=== PATIENT | female | born 1935 | race Caucasian/White ===

== ENCOUNTER 2016-10-31 22:44 | Emergency (ER) | payer SELFPAY ==
[~2016-10-31] VITALS: Ht 154.9 cm; Wt 52.5 kg
[~2016-10-31 22:44] MED LIST: ASPI-664 PO; ATOR20TA38 PO; BACL10TA PO; GABA300C16 PO; TYL500 PO
[2016-10-31 22:56] VITALS: Ht 154.9 cm; Wt 52.5 kg
== END 2016-11-01 02:45 | disposition left against medical advice (07) ==
LOC: E/R 22:44
DX: Z53.21 Procedure and treatment not carried out due to patient leaving prior to being seen by health care provider (principal)

== ENCOUNTER 2017-02-21 15:26 | Inpatient (IN) | payer MEDICAID ==
[~2017-02-21] VITALS: Ht 157.5 cm; Wt 54.8 kg
[2017-02-21] MEDS ORDERED: SOD CHLORIDE 0.9% 500 ML IV STA (16:45)
[2017-02-21] MEDS ORDERED: ASPI81TA3 PO (16:48)
[2017-02-21] MEDS ORDERED: LEVE-5 PO (16:49)
[2017-02-21] MEDS ORDERED: LISI2.5T59 PO (16:49)
[2017-02-21] MEDS ORDERED: LEVO25TA53 PO (16:49)
[2017-02-21] MEDS ORDERED: morphine 2 MG INJ IV ONE (17:00)
[2017-02-21] MEDS ORDERED: ONDANSETRON 4 MG INJ IV ONE (17:00)
--- NOTE | 2017-02-21 17:08 | ERA ---
ER Documentation Chief Complaint Date/Time DATE: 02/21/17 TIME: 17:04 Chief Complaint LOWER BACK PAIN AFTER MECHANICAL FALL HPI An twisting operator has been used. This is an 82-year-old female who presents with right hip pain after mechanical fall. The patient states that she was using her walker tripped and fell onto the right side of her hip. She now has hip pain is unable to walk arrange the right lower extremity. At triage it was noted that she has back pain but she denies any back pain. She denies hitting her head or losing consciousness, no neck pain. No prodrome of chest pain or shortness of breath. ROS All systems reviewed and are negative except as per history of present illness. Medications Home Meds Active Scripts Baclofen* (Baclofen*) 10 Mg Tablet, 10 MG PO Q8 Y for MUSCLE SPASMS, #60 TAB Prov:MOSHE LEUNG 11/15/15 Atorvastatin Calcium* (Atorvastatin Calcium*) 20 Mg Tablet, 20 MG PO QHS for 60 Days, TAB Prov:MOSHE LEUNG 11/15/15 Gabapentin* (Gabapentin*) 300 Mg Capsule, 300 MG PO TID for 30 Days, CAP Prov:ABAD PERSAUD MD 11/07/15 Reported Medications Levetiracetam* (Keppra*) 500 Mg Tablet, 500 MG PO BID, TAB 02/21/17 Levothyroxine Sodium* (Levothyroxine Sodium*) 25 Mcg Tablet, 25 MCG PO BEFORE BREAKFAST, #30 TAB 02/21/17 Lisinopril* (Lisinopril*) 2.5 Mg Tablet, 2.5 MG PO DAILY, #30 TAB 02/21/17 Aspirin* (Aspirin* Chew) 81 Mg Tab.chew, 81 MG PO DAILY, TAB.CHEW 02/21/17 Discontinued Reported Medications Acetaminophen* (Tylenol*) 500 Mg Tab, 500 MG PO Q8 Y for MILD PAIN LEVEL 1-3, TAB 11/07/15 Allergies Allergies: Coded Allergies: No Known Allergy (Unverified , 02/21/17) PMhx/Soc History of Surgery: No Anesthesia Reaction: No Hx Neurological Disorder: Yes (seizure) Hx Respiratory Disorders: No Hx Cardiac Disorders: No Hx Psychiatric Problems: No Hx Miscellaneous Medical Probl: Yes Hx Alcohol Use: No Hx Substance Use: No Hx Tobacco Use: No FmHx Family History: No diabetes Physical Exam Vitals Vital Signs Date Time Temp Pulse Resp B/P Pulse Ox O2 Delivery O2 Flow Rate FiO2 02/21/17 17:12 74 19 171/97 97 Room Air 02/21/17 15:33 98.0 71 18 151/80 99 Physical Exam Airway is intact Bilateral breath sounds Strong distal pulses No obvious deficits General: Well developed, well nourished, no acute distress Head: Normocephalic, atraumatic Eyes: Pupils equally reactive, EOM intact ENT: Moist mucous membranes Neck: Supple, no lymphadenopathy, No midline tenderness, deformities, step-offs to the cervical spine, full active and passive range of motion without midline pain. Respiratory: Lungs clear bilaterally, no distress, no chest wall tenderness, no crepitus Cardiovascular: RRR, no murmurs, rubs, or gallops Abdominal: Soft, non-tender, non-distended, no peritoneal signs, pelvis is stable : Deferred MSK: The right lower extremity is held externally rotated and shortened. Significant pain with internal and external rotation, 2+ dorsalis pedis and posterior tibial pulses. Focal tenderness to the right hip. No midline tenderness deformities or step-offs to the thoracolumbar spine. No other bony abnormality's. Neurologic: Alert and oriented, moving all extremities, normal speech, no focal weakness, no cerebellar signs Skin: No ecchymoses or bruising to the chest or abdomen Psych: Normal mood Result Diagram: 02/21/17 1700 02/21/17 1700 Results 24 hrs Laboratory Tests Test 02/21/17 17:00 White Blood Count 13.110^3/ul Red Blood Count 4.0910^6/ul Hemoglobin 10.7g/dl Hematocrit 33.9% Mean Corpuscular Volume 82.9fl Mean Corpuscular Hemoglobin 26.2pg Mean Corpuscular Hemoglobin Concent 31.6g/dl Red Cell Distribution Width 15.6% Platelet Count 49564^3/UL Mean Platelet Volume 9.7fl Neutrophils % 66.5% Lymphocytes % 26.8% Monocytes % 4.0% Eosinophils % 1.9% Basophils % 0.2% Nucleated Red Blood Cells % 0.0/100WBC Neutrophils # 8.710^3/ul Lymphocytes # 3.510^3/ul Monocytes # 0.510^3/ul Eosinophils # 0.310^3/ul Basophils # 0.010^3/ul Nucleated Red Blood Cells # 0.010^3/ul Prothrombin Time 13.1Sec Prothrombin Time Ratio 1.0 INR International Normalized Ratio 0.99 Activated Partial Thromboplast Time 30.0Sec Sodium Level 142mmol/L Potassium Level 3.7mmol/L Chloride Level 105mmol/L Carbon Dioxide Level 24mmol/L Anion Gap 17 Blood Urea Nitrogen 19mg/dl Creatinine 0.67mg/dl Glucose Level 85mg/dl Calcium Level 9.3mg/dl Current Medications Medications (Trade) Dose Ordered Sig/Flor Route PRN Reason Start Time Stop Time Status Last Admin Dose Admin Sodium Chloride (NS) 500 ml @ 500 mls/hr Q1H STAT IV 02/21/17 16:45 02/21/17 17:44 DC 02/21/17 17:02 Morphine Sulfate (morphine) 4 mg ONCE ONCE IV 02/21/17 17:00 02/21/17 17:01 DC 02/21/17 17:05 Ondansetron HCl (Zofran Inj) 4 mg ONCE ONCE IV 02/21/17 17:00 02/21/17 17:01 DC 02/21/17 17:05 Ondansetron HCl (Zofran Inj) 4 mg BRIDGE ORDER PRN IV NAUSEA AND/OR VOMITING 02/21/17 18:00 02/22/17 17:59 Acetaminophen (Tylenol Tab) 650 mg ER BRIDGE PRN PO MILD PAIN/FEVER 02/21/17 18:00 02/22/17 17:59 Procedures/MDM EKG, MONITORS, & DIAGNOSTIC IMAGING: EKG: I reviewed and interpreted a 12-lead EKG. Rhythm: Normal sinus rhythm Ectopy: None Intervals: No abnormalities ST segments: No elevations or depressions T waves: No contiguous inversions Chest x-ray: I reviewed and interpreted a 1 view of the chest Mediastinum: No enlargement Cardiac silhouette: No cardiomegaly Airspace: Clear lung lama bilaterally without evidence of pneumothorax Bones: No evidence of fracture X-ray pelvis: X-ray pelvis: I reviewed and interpreted 1 view of the pelvis, there is subtle evidence of a subcapital fracture of the right femur, no soft tissue deformity or foreign body. X-ray right hip: I reviewed and interpreted multiple views of the x-ray Bones: With appears to be a subcapital fracture of the right femur, no dislocation Soft tissue: No evidence of foreign body CT hip is pending LAB INTERPRETATION: No leukocytosis MEDICAL DECISION MAKING: The patient has clinical signs and symptoms consistent with likely closed right hip fracture. The patient did not hit her head or lose consciousness. This is well described. The patient does not meet high-risk criteria and based on NEXUS cervical spine criteria there is no indication for cervical spine imaging at this time. Preoperative laboratory testing and diagnostic imaging will be initiated. Patient will be given pain control medication. No signs of syncope. ER COURSE: The patient's pain is improved. X-ray imaging confirms suspicion of likely right hip fracture that appears to be subcapital femoral fracture. CT imaging to better delineate fracture. Patient is neurovascular intact. Orthopedic surgery was notified. Patient will be admitted for further management. I kept the patient and/or family informed of laboratory and diagnostic imaging results throughout the emergency room course. DISPOSITION PLAN: Medical surgical admission for management of acute right hip fracture CONSULTATION: Accepting care team and consultations: I discussed the current laboratory data, diagnostic imaging and emergency care provided. Admitting team: Dr. Leung Admitting team indication: Insurance directed Consulting services: Orthopedic surgeon Dr. Hawkins Departure Diagnosis: Primary Impression: Closed subcapital fracture of right femur Qualified Code: S72.011A - Closed subcapital fracture of right femur, initial encounter Condition: Stable ABAD PERSAUD MD Feb 21, 2017 17:08
--- NOTE | 2017-02-21 17:12 | RADRPT ---
PROCEDURE: XR Chest. CLINICAL INDICATION: Trauma. Chest pain. TECHNIQUE: Single frontal view. COMPARISON: 10/20/2016. FINDINGS: The lungs are clear. The heart size is normal. There is no pleural effusion. There is no pneumothorax. IMPRESSION: 1. Normal chest radiograph. RPTAT: QQ .Silvio Sanabria MD, MD Date Time Electronically viewed and signed by .Silvio Sanabria MD, MD on 02/21/2017 17:11 .R/
--- NOTE | 2017-02-21 17:17 | RADRPT ---
PROCEDURE: XR Right Hip. CLINICAL INDICATION: Trauma due to a fall. Right hip pain. TECHNIQUE: Two views. Frontal and lateral. COMPARISON: No prior studies are available for comparison. FINDINGS: There is a possible nondisplaced subcapital fracture of the right hip. There is no other fracture a nd there is no dislocation. The soft tissues are normal. There is diffuse osteopenia. Articular surfaces are intact. There is no lytic or blastic lesion. There is no radiopaque foreign body. IMPRESSION: 1. Possible nondisplaced subcapital fracture of the right hip. Correlation with CT scan advised. 2. Diffuse osteopenia. RPTAT: QQ .Silvio Sanabria MD, Date Time Electronically viewed and signed by .Silvio Sanabria MD, on 02/21/2017 17:17 .R/
[2017-02-21 17:45] LABS: ADD SCAN DIFF NO
[2017-02-21 17:48] LABS: BASOPHILS % 0.2 % (0.0-2.0); EOSINOPHILS # 0.3 10^3/ul (0.0-0.5); EOSINOPHILS % 1.9 % (0.0-7.0); HEMATOCRIT 33.9 % (37.0-47.0); HEMOGLOBIN 10.7 g/dl (12.0-16.0); LYMPHOCYTES # 3.5 10^3/ul (0.8-2.9); LYMPHOCYTES % 26.8 % (15.0-51.0); MEAN CORPUSCULAR HEMOGLOBIN 26.2 pg (29.0-33.0); MEAN CORPUSCULAR HGB CONC 31.6 g/dl (32.0-37.0); MEAN CORPUSCULAR VOLUME 82.9 fl (82.0-101.0); MEAN PLATELET VOLUME 9.7 fl (7.4-10.4); MONOCYTE # 0.5 10^3/ul (0.3-0.9); NEUTROPHIL # 8.7 10^3/ul (1.6-7.5); NEUTROPHILS % 66.5 % (39.0-77.0); PLATELET COUNT 246 10^3/UL (140-415); RED BLOOD COUNT 4.09 10^6/ul (4.20-5.40); RED CELL DISTRIBUTION WIDTH 15.6 % (11.5-14.5); WHITE BLOOD COUNT 13.1 10^3/ul (4.8-10.8)
[2017-02-21 18:00] LABS: INR 0.99; POTASSIUM 3.7 mmol/L (3.5-5.1); PROTIME 13.1 Sec (12.2-14.2)
[2017-02-21] MEDS ORDERED: ONDANSETRON 4 MG INJ IV PRN (18:00)
[2017-02-21] MEDS ORDERED: ACETAMINOPHEN 325 MG TAB PO PRN (18:00)
[2017-02-21 18:02] LABS: CREATININE 0.67 mg/dl (0.44-1.00)
[2017-02-21 18:03] LABS: CALCIUM 9.3 mg/dl (8.4-10.2)
--- NOTE | 2017-02-21 18:14 | RADRPT ---
PROCEDURE: XR Pelvis. CLINICAL INDICATION: Pelvic pain. TECHNIQUE: Single AP view of the pelvis. COMPARISON: No prior studies are available for comparison. FINDINGS: There is a possible nondisplaced subcapital fracture of the right hip. There is no other fracture a nd there is no dislocation. There is no lytic or blastic lesion. There is diffuse osteopenia. Articular surfaces are intact. The sacroiliac joints are grossly unremarkable. There is no radiopaque foreign body. IMPRESSION: 1. Possible nondisplaced subcapital fracture of the right hip. Correlation with CT scan advised. 2. Diffuse osteopenia. 3. Otherwise unremarkable frontal view of the pelvis. RPTAT: QQ .Silvio Sanabria MD, MD Date Time Electronically viewed and signed by .Silvio Sanabria MD, on 02/21/2017 18:14 .R/
--- NOTE | 2017-02-21 20:44 | RADRPT ---
PROCEDURE: CT Pelvis without contrast. CLINICAL INDICATION: Pelvic pain. Trauma. Right hip pain. TECHNIQUE: CT scan of the pelvis without intravenous contrast was performed. Helical axial section s were obtained through the pelvis without intravenous contrast enhancement. Coronal and sagittal r eformatted images were obtained from the axial source images. Images were reviewed on a high-resolut [employer] PACS workstation. Total exam DLP is 149.56 mGy-cm. CTDIvol is 5.43 mGy. One or more of the fol lowing dose reduction techniques were used: Automated exposure control, adjustment of the mA and/or kV according to patient size, use of iterative reconstruction technique. COMPARISON: Plain radiographs of the pelvis and right hip done earlier the same day. FINDINGS: There is no pelvic lymphadenopathy or mass. The bladder and distal ureters are normal. The appendix is well seen and appears normal. The bowel and mesentery are normal. There is no free fluid or free gas. There is an acute mildly angulated and impacted subcapital fracture of the right hip. There is no o ther fracture and there is no dislocation. There are degenerative changes of the lower lumbar spine . IMPRESSION: 1. Acute mildly angulated and impacted subcapital fracture of the right hip. 2. Degenerative changes of the lower lumbar spine. 3. Otherwise unremarkable study. Call report: A call report of the findings was made to Dr. Ledesma on 02/21/2017 at 2040 hours. RPTAT: QQ .Silvio Sanabria MD, Date Time Electronically viewed and signed by .Silvio Sanabria MD, on 02/21/2017 20:43 .R/
[2017-02-21] MEDS ORDERED: LORAZEPAM 2 MG INJ ONE (21:53)
[2017-02-21] MEDS ORDERED: LORAZEPAM 2 MG INJ IV PRN (22:00)
[2017-02-22] MEDS ORDERED: BACLOFEN 10 MG TAB PO PRN (00:30)
[2017-02-22] MEDS ORDERED: ONDANSETRON 4 MG INJ IV PRN (00:30)
[2017-02-22] MEDS ORDERED: KETOROLAC 15 MG INJ IV PRN (00:30)
[2017-02-22 01:16] VITALS: BP 126/61; RESP 17
[2017-02-22 01:30] VITALS: Ht 157.5 cm; Wt 54.8 kg
--- NOTE | 2017-02-22 03:19 | HP ---
DATE OF ADMISSION: 02/21/2017 CHIEF COMPLAINT: Right hip pain status post fall. HISTORY OF PRESENT ILLNESS: The patient is an 82-year-old female with a history of hypertension, dy slipidemia, anemia, old cerebrovascular accident, hypothyroidism, and probable seizure who presented to the emergency department complaining of right hip pain. She had a mechanical fall in the [facility] injuring the right side of her hip. She complained of severe pain. Denied hitting her head. No chest pain, lightheadedness, or palpitation prior to her fall. When she presented to the ER, blood pressure was 151/80, heart rate 71, respiratory rate 18, tempera ture 98, oxygen saturation 99% on room air. Imaging, including a pelvic and hip x-ray as well as pe lvis CT, shows right hip fracture. Her chest x-ray was normal. Dr. Hawkins, the orthopedic surgeon, howell s been notified. REVIEW OF SYSTEMS: A 12-point review was performed and is negative except as mentioned in HPI. PAST MEDICAL HISTORY: As per HPI. SOCIAL HISTORY: Denied a history of tobacco, alcohol, or illicit drug use. ALLERGIES: NO KNOWN DRUG ALLERGIES. HOME MEDICATIONS: 1. Baclofen. 2. Lipitor. 3. Lisinopril. 4. Aspirin. 5. Gabapentin. 6. Keppra. 7. Synthroid. PHYSICAL EXAMINATION: VITAL SIGNS: Blood pressure 146/80, heart rate 74, respiratory rate 20, temperature 98, oxygen satu ration 98% on 2 liters. GENERAL: The patient is lying in bed, sleepy but arousable. She is not fully oriented. HEENT: No obvious head deformity. Pupils are reactive to light. Extraocular muscles intact. CARDIOVASCULAR: Regular rate and rhythm. No extra sounds. LUNGS: Clear with no wheezing or rhonchi. ABDOMEN: Soft, nontender. Positive bowel sounds. EXTREMITIES: There is tenderness in the right hip area. Range of motion of the hip is severely berrios ited because of pain. No pitting edema. LABORATORY DATA: WBC 13.1, hemoglobin 10.7. Otherwise, CBC and BMP within acceptable range. IMPRESSION: 1. Acute right hip fracture, status post mechanical fall. 2. Hypertension. 3. History of dyslipidemia. 4. Anemia, a combination of iron deficiency and chronic disease. 5. History of old cerebrovascular accident. 6. Probably history of seizure. 7. History of hypothyroidism. 8. Urinary tract infection. 9. Leukocytosis secondary to urinary tract infection and also possibly stress-induced reaction. PLAN: The patient is currently awaiting an ortho evaluation. In the meantime, we will continue bartolo n management. Bedrest. We will continue her home medications, but I will hold her aspirin. She wi ll be placed on antibiotics for her urinary tract infection. We will follow up on the culture resul ts. Leukocytosis is most likely secondary to urinary tract infection but also probably stress-induc ed reaction as well from pain from her hip fracture. No sign of sepsis. She will receive IV fluid. We will most likely place cardiology consultation for clearance if the patient is going to have hi p surgery. Further workup and management per clinical course. Dictated By: YARELY THOMPSON/ELSA Conf#: [id number] DID#: [id number]
[2017-02-22 06:21] LABS: ADD SCAN DIFF NO
[2017-02-22 06:47] LABS: POTASSIUM 3.7 mmol/L (3.5-5.1)
[2017-02-22 06:48] LABS: ALBUMIN 3.5 g/dl (3.3-4.9); ALBUMIN/GLOBULIN RATIO 0.94; BASOPHILS % 0.2 % (0.0-2.0); CALCIUM 8.7 mg/dl (8.4-10.2); CREATININE 0.67 mg/dl (0.44-1.00); EOSINOPHILS # 0.3 10^3/ul (0.0-0.5); EOSINOPHILS % 3.6 % (0.0-7.0); HEMATOCRIT 32.5 % (37.0-47.0); HEMOGLOBIN 9.9 g/dl (12.0-16.0); LYMPHOCYTES # 2.4 10^3/ul (0.8-2.9); LYMPHOCYTES % 27.1 % (15.0-51.0); MEAN CORPUSCULAR HEMOGLOBIN 25.5 pg (29.0-33.0); MEAN CORPUSCULAR HGB CONC 30.5 g/dl (32.0-37.0); MEAN CORPUSCULAR VOLUME 83.8 fl (82.0-101.0); MEAN PLATELET VOLUME 9.3 fl (7.4-10.4); MONOCYTE # 0.5 10^3/ul (0.3-0.9); MONOCYTES % 5.1 % (0.0-11.0); NEUTROPHIL # 5.6 10^3/ul (1.6-7.5); NEUTROPHILS % 63.7 % (39.0-77.0); PHOSPHORUS 4.1 mg/dl (2.5-4.9); PLATELET COUNT 237 10^3/UL (140-415); RED BLOOD COUNT 3.88 10^6/ul (4.20-5.40); RED CELL DISTRIBUTION WIDTH 15.9 % (11.5-14.5); TOTAL PROTEIN 7.2 g/dl (6.1-8.1); WHITE BLOOD COUNT 8.8 10^3/ul (4.8-10.8)
[2017-02-22] MEDS: LEVOTHYROXINE 25 MCG TAB PO SCH (06:55)
[2017-02-22 07:17] LABS: THYROID STIMULATING HORMONE 2.75 MIU/L (0.465-4.680)
[2017-02-22 08:50] VITALS: BP 118/59; RESP 16
[2017-02-22] MEDS: LEVETIRACETAM 500 MG TAB PO SCH ×2 (09:30→20:43)
[2017-02-22] MEDS: LISINOPRIL 5 MG TAB PO SCH (09:31)
[2017-02-22] MEDS: GABAPENTIN 300 MG CAP PO SCH ×3 (09:31→20:44)
[2017-02-22] MEDS: DEXTROSE 5%-0.45% NACL 1,000 ML IV SCH ×2 (11:33→22:20)
[2017-02-22] MEDS: CEFTRIAXONE 500 MG in SOD CHLORIDE 0.9% 50 ML IVPB SCH (12:51)
[2017-02-22 19:05] VITALS: BP 135/63; RESP 18
[2017-02-22] MEDS: ATORVASTATIN 20 MG TAB PO SCH (20:43)
[2017-02-22] MEDS: HEPARIN 5,000 UNIT/0.5 ML VIAL SC SCH (20:49)
[2017-02-23 05:27] LABS: ADD SCAN DIFF NO
[2017-02-23 05:35] LABS: BASOPHILS % 0.1 % (0.0-2.0); EOSINOPHILS # 0.3 10^3/ul (0.0-0.5); EOSINOPHILS % 3.6 % (0.0-7.0); HEMATOCRIT 29.7 % (37.0-47.0); HEMOGLOBIN 9.3 g/dl (12.0-16.0); LYMPHOCYTES # 2.6 10^3/ul (0.8-2.9); MEAN CORPUSCULAR HEMOGLOBIN 26.2 pg (29.0-33.0); MEAN CORPUSCULAR HGB CONC 31.3 g/dl (32.0-37.0); MEAN CORPUSCULAR VOLUME 83.7 fl (82.0-101.0); MEAN PLATELET VOLUME 9.1 fl (7.4-10.4); MONOCYTE # 0.5 10^3/ul (0.3-0.9); MONOCYTES % 5.6 % (0.0-11.0); NEUTROPHILS % 59.3 % (39.0-77.0); PLATELET COUNT 234 10^3/UL (140-415); RED BLOOD COUNT 3.55 10^6/ul (4.20-5.40); RED CELL DISTRIBUTION WIDTH 15.7 % (11.5-14.5); WHITE BLOOD COUNT 8.4 10^3/ul (4.8-10.8)
[2017-02-23 06:00] LABS: CHOL/HDL RATIO 2.1 RATIO
[2017-02-23 06:08] LABS: CALCIUM 8.6 mg/dl (8.4-10.2); CREATININE 0.68 mg/dl (0.44-1.00); POTASSIUM 3.8 mmol/L (3.5-5.1)
[2017-02-23] MEDS: PANTOPRAZOLE (EC) 40 MG TAB PO SCH (06:22)
[2017-02-23] MEDS: LEVOTHYROXINE 25 MCG TAB PO SCH (06:22)
--- NOTE | 2017-02-23 07:09 | PN ---
DATE: 02/22/2017 SUBJECTIVE: No acute events overnight. Still waiting to be seen by orthopedic surgery team. OBJECTIVE: VITAL SIGNS: Stable. GENERAL: The patient is lying in bed in no acute distress. HEENT: Pupils equal, round, reactive to light. Extraocular muscles intact. NECK: Supple, no thyromegaly. LUNGS: Clear to auscultation bilaterally. CARDIOVASCULAR: S1, S2 heard. No rubs or gallops. ABDOMEN: Soft, nontender, nondistended. Normal bowel sounds. No rebound or guarding. MUSCULOSKELETAL: Decreased range of motion in the right lower extremity with tenderness in the righ t hip area, otherwise no lower extremity edema on the left side. NEUROLOGIC: No focal deficits. LABORATORY DATA: Comprehensive metabolic panel was normal. CBC is normal. ASSESSMENT AND PLAN: An 82-year-old female with history of hypertension, high cholesterol, anemia, CVA, hypothyroidism, and possible seizure history who has acute right hip fracture, status post mech anical fall. 1. Right hip pain secondary to right hip fracture, status post fall. Again, keep patient n.p.o., I V fluids. Follow up orthopedic surgery recommendations. The patient may benefit from orthopedic hernandez rgical intervention. Follow up their recommendations. Pain control medications as well. 2. Essential hypertension. Blood pressure stable. Continue current medicines. 3. High cholesterol. Continue to monitor for now. 4. History of anemia. A combination of iron deficiency and chronic disease. Hemoglobin is relativ jocelyn stable. Continue to monitor for now. 5. History of seizure. Ativan p.r.n. 6. Old stroke, continue to monitor for now. 7. History of hypothyroidism. Consider checking thyroid panel. 8. Urinary tract infection, antibiotics. Follow up final culture results. 9. Gastrointestinal prophylaxis. Add PPI. 10. Deep venous thrombosis prophylaxis. Heparin subcutaneously. Dictated By: VERO OLSON Conf#: [id number] DID#: [id number]
[2017-02-23 07:44] VITALS: BP 115/5; RESP 20
[2017-02-23 08:44] VITALS: BP 115/58; RESP 20
[2017-02-23] MEDS: GABAPENTIN 300 MG CAP PO SCH ×3 (09:19→20:34)
[2017-02-23] MEDS: LEVETIRACETAM 500 MG TAB PO SCH ×2 (09:19→20:34)
[2017-02-23] MEDS: LISINOPRIL 5 MG TAB PO SCH (09:26)
[2017-02-23] MEDS: HEPARIN 5,000 UNIT/0.5 ML VIAL SC SCH ×2 (09:32→20:40)
[2017-02-23] MEDS: DEXTROSE 5%-0.45% NACL 1,000 ML IV SCH (11:40)
[2017-02-23] MEDS: CEFTRIAXONE 500 MG in SOD CHLORIDE 0.9% 50 ML IVPB SCH (12:01)
--- NOTE | 2017-02-23 14:06 | RADRPT ---
Echocardiogram Report Patient Name: TOSHIA EPSTEIN Gender: Female Date: 1935 Study Date: 23-Feb-2017 Manager [employer]: Rabia Iniguez [facility] Location: [id number] Ref. Physician: AASHISH AUGUSTINE Quality: Good Procedures: Transthoracic echocardiogram with complete 2D, M-Mode, and doppler examination. Indications: Pre-op. 2D/M Mode Doppler Measurement Value Normal Ranges Measurement Value Normal Ranges LVIDd 2D 3.7 3.5 - 5.6 cm AV Peak Jesse 1.4 m/sec LVIDs 2D 2.2 2.1 - 4.1 cm AV Peak PG 7.3 mmHg LVPWd 2D 0.7 0.6 - 1.1 cm LVOT Peak Jesse 1.3 m/sec IVSd 2D 0.8 0.6 - 1.1 cm LVOT Peak PG 7.1 mmHg AoR Diam 2D 2.5 2.0 - 3.7 cm MV E Peak Jesse 0.6 m/sec EDV 2D 57.3 cm3 MV A Peak Jesse 0.8 m/sec ESV 2D 11.2 cm3 MV E/A 0.7 LA Dimen 2D 2.5 2.3 - 4.0 cm MV Decel Time 192 msec MV Decel [place] 3 MV E/A 0.7 TR Peak Jesse 3.2 m/sec TR Peak PG 40.5 mmHg RVSP 44.0 mmHg Findings Left Ventricle: Normal left ventricular systolic function. Normal left ventricular cavity size. Normal left ventricular wall thickness. Ejection fraction is visually estimated at 55 %. Tissue Doppler/Mitral Doppler indices are consistent with impaired relaxation (Stage I diastolic dysfunction). Right Ventricle: Normal right ventricular size. Normal right ventricular systolic function. Left Atrium: The left atrium is normal in size. Right Atrium: The right atrium is normal in size. Mitral Valve: Normal appearance and function of the mitral valve with trace physiologic regurgitation. Aortic Valve: No hemodynamically significant aortic stenosis by doppler. Aortic cusps appear mildly calcified. Trace to mild aortic valve regurgitation. Tricuspid Valve: Normal appearance of the tricuspid valve. Estimated peak PA systolic pressure 50 mmHg. There is trace tricuspid regurgitation. Pulmonic Valve: Pulmonic valve not well visualized. Pericardium: Normal pericardium with no significant pericardial effusion. Aorta: Normal aortic root. IVC: Dilated IVC with respiratory collapse consistent with elevated right atrial pressure. Conclusions 1.Normal left ventricular systolic function. Normal left ventricular cavity size. Normal left ventricular wall thickness. Ejection fraction is visually estimated at 55 %. Tissue Doppler/Mitral Doppler indices are consistent with impaired relaxation (Stage I diastolic dysfunction). 2.Normal appearance and function of the mitral valve with trace physiologic regurgitation. 3.No hemodynamically significant aortic stenosis by doppler. Aortic cusps appear mildly calcified. Trace to mild aortic valve regurgitation. 4.Normal appearance of the tricuspid valve. Estimated peak PA systolic pressure 50 mmHg. There is trace tricuspid regurgitation. 5.Dilated IVC with respiratory collapse consistent with elevated right atrial pressure. Electronically Signed By: Jose Hull 23-Feb-2017 14:05:37 -0700 Patient Name: TOSHIA EPSTEIN Study Date: 23-Feb-2017 [id number]
--- NOTE | 2017-02-23 16:16 | CONS ---
DATE OF ADMISSION: 02/21/2017 DATE OF CONSULTATION: 02/23/2017 TYPE OF CONSULTATION: Cardiology. REFERRING PHYSICIAN: Dr. Bahena. REASON FOR CONSULTATION: Cardiovascular preop evaluation. CHIEF COMPLAINT: Status post fall with right hip pain. HISTORY OF PRESENT ILLNESS: Thank you for this referral. History obtained from the patient, review of the chart, and review of the old chart, discussion with the staff and physicians. This is an un fortunate 82-year-old female with history of cerebrovascular accident, hypertension, dyslipidemia, a nemia, and possibly seizure disorder who came to emergency room with above complaint. The patient s aid she had a mechanical fall. She fell on the right hip. She apparently has a hip fracture and is being evaluated for possible hip surgery. We were kindly asked to optimize from the cardiac standp oint. The patient denies any chest pain or pressure to me. Does not walk much due to her stroke. Denies any palpitation to me. Denies any history of cardiac disorder except for her stroke. PAST MEDICAL HISTORY: History of cerebrovascular accident, hypertension, dyslipidemia, anemia, poss ibly seizure. MEDICATIONS: As per medical reconciliation and includes: 1. Baclofen. 2. Lisinopril 3. Lipitor. 4. Aspirin. 5. Gabapentin. 6. Keppra. 7. Synthroid. SOCIAL HISTORY: Does not smoke or drink. FAMILY HISTORY: Denies any history of coronary artery disease. REVIEW OF SYSTEMS: All are negative except for above-mentioned. PHYSICAL EXAMINATION: VITAL SIGNS: Temperature 97.4, heart rate of 62, blood pressure of 115/58, respiration rate of 20, saturating 98%. HEENT: Normocephalic, atraumatic. No acute distress. Pupils are equal and round. CARDIOVASCULAR: Regular rate and rhythm, systolic murmur. PULMONARY: With no wheezes, no rhonchi. GASTROINTESTINAL: Soft, nontender. EXTREMITIES: No significant lower extremity edema. NEUROLOGIC: Awake, responds appropriately. PSYCHIATRIC: Appears to be calm and pleasant. There is right-sided weakness. LABORATORY: WBC of 8.4, hemoglobin 9.3, platelets 234. Sodium 136, potassium 3.8, BUN of 12, creat inine 0.68, glucose 101. Cholesterol 102, LDL 37, HDL 47. TSH 2.75. Chest x-ray shows normal chest x-ray per radiology report. Pelvic CT shows acute, mildly angulated and impacted subcapital fracture of the right hip. EKG was personally reviewed, which showed normal sinus rhythm with nonspecific ST-T wave abnormaliti es. Echocardiogram was also personally reviewed which showed ejection fraction of about 55%. Trace MR. Trace to mild aortic insufficiency. PA pressure was elevated at 50 mmHg. IVC appeared to be dilated. ASSESSMENT AND PLAN: 1. Cardiovascular preop evaluation. 2. Hip fracture. 3. History of cerebrovascular accident. 4. History of hypertension, under good control. 5. Pulmonary hypertension. 6. History of anemia. 7. History of thyroid disorder, on Synthroid. 8. Possible urinary tract infection with Gram-negative rods in the urine. RECOMMENDATIONS: We will continue with the current cardiac care. Blood pressure is currently under good control. Lisinopril will be continued. Thyroid supplement will be continued. Statin will be continued as well. The patient is currently optimized from the cardiac standpoint with no symptoms of heart failure or coronary artery disease. No further cardiac workup would be indicated prior to the surgery. The patient has multiple risk factors including risk of stroke. The patient most rec ently had a history of stroke which will place her at moderate risk of cardiovascular event, but no further cardiac workup would be indicated or necessary or beneficial at this point. We will continue to follow along with you. Thank you for this referral. Dictated By: GABRIEL PAL/ELSA Conf#: [id number] DID#: [id number] CC: VERO BAHENA;*EndCC*
--- NOTE | 2017-02-23 18:47 | PN ---
DATE: 02/23/2017 SUBJECTIVE: Chart reviewed. The patient's pain is well controlled on current medications. PHYSICAL EXAMINATION: VITAL SIGNS: Blood pressure 115/58, pulse 62, respirations 20, temperature 97.4. She is saturating 98% on room air. HEENT: Pupils are equal and reactive to light. NECK: Supple, no JVD noted, no cervical adenopathy, no carotid bruits heard. LUNGS: Fair breath sounds bilaterally. CARDIOVASCULAR: S1, S2 normal. ABDOMEN: Soft, nontender. No organomegaly or masses noted. EXTREMITIES: No clubbing, cyanosis, or edema. NEUROLOGICAL: Awake and alert. LABORATORY DATA: WBC 8.4, hemoglobin 9.3, hematocrit 29.7, platelets 234. Sodium 136, potassium 3. 8, chloride 107, CO2 27, BUN 12, creatinine 0.68, glucose 101. PT, PTT is normal. IMPRESSION: 1. Right hip fracture. 2. History of essential hypertension, well controlled. 3. History of hypercholesterolemia. 4. History of anemia. 5. History of seizure disorder. 6. History of cerebrovascular accident. 7. History of hypothyroidism. 8. Urinary tract infection. RECOMMENDATIONS: There is a bit of mixup between who the orthopedic surgeon is supposed to take care of this patient. Will call ____ for orthopedic consultation for possible surgery tomorrow. From a medical perspective, patient is stable to undergo orthopedic surgery. Dictated By: LISA RANDALL MD, MA/ELSA Conf#: [id number] DID#: [id number]
[2017-02-23 19:41] VITALS: BP 126/60; RESP 18
[2017-02-23] MEDS: ATORVASTATIN 20 MG TAB PO SCH (20:34)
[2017-02-24] MEDS: DEXTROSE 5%-0.45% NACL 1,000 ML IV SCH (01:00)
[2017-02-24 05:39] LABS: ADD SCAN DIFF NO
[2017-02-24 05:56] LABS: BASOPHILS % 0.3 % (0.0-2.0); EOSINOPHILS # 0.4 10^3/ul (0.0-0.5); EOSINOPHILS % 3.7 % (0.0-7.0); HEMOGLOBIN 9.9 g/dl (12.0-16.0); LYMPHOCYTES # 3.2 10^3/ul (0.8-2.9); LYMPHOCYTES % 34.2 % (15.0-51.0); MEAN CORPUSCULAR HEMOGLOBIN 26.1 pg (29.0-33.0); MEAN CORPUSCULAR HGB CONC 30.9 g/dl (32.0-37.0); MEAN CORPUSCULAR VOLUME 84.2 fl (82.0-101.0); MEAN PLATELET VOLUME 9.5 fl (7.4-10.4); MONOCYTE # 0.5 10^3/ul (0.3-0.9); MONOCYTES % 5.6 % (0.0-11.0); NEUTROPHIL # 5.3 10^3/ul (1.6-7.5); NEUTROPHILS % 55.9 % (39.0-77.0); PLATELET COUNT 236 10^3/UL (140-415); RED CELL DISTRIBUTION WIDTH 15.9 % (11.5-14.5); WHITE BLOOD COUNT 9.5 10^3/ul (4.8-10.8)
[2017-02-24 06:04] LABS: POTASSIUM 3.7 mmol/L (3.5-5.1)
[2017-02-24 06:06] LABS: CREATININE 0.77 mg/dl (0.44-1.00)
[2017-02-24 06:07] LABS: CALCIUM 8.9 mg/dl (8.4-10.2)
[2017-02-24] MEDS: PANTOPRAZOLE (EC) 40 MG TAB PO SCH (06:08)
[2017-02-24] MEDS: LEVOTHYROXINE 25 MCG TAB PO SCH (06:08)
[2017-02-24 07:35] VITALS: BP 95/54; RESP 18
[2017-02-24] MEDS: LISINOPRIL 5 MG TAB PO SCH (08:39)
[2017-02-24] MEDS: GABAPENTIN 300 MG CAP PO SCH ×3 (08:42→20:41)
[2017-02-24] MEDS: LEVETIRACETAM 500 MG TAB PO SCH ×2 (08:43→20:41)
[2017-02-24] MEDS: HEPARIN 5,000 UNIT/0.5 ML VIAL SC SCH ×2 (08:53→20:42)
[2017-02-24] MEDS: CEFTRIAXONE 500 MG in SOD CHLORIDE 0.9% 50 ML IVPB SCH (12:06)
--- NOTE | 2017-02-24 13:40 | PN ---
Date/Time of Note Date/Time of Note DATE: 02/24/17 TIME: 13:29 Assessment/Plan VTE Prophylaxis VTE Prophylaxis Intervention: heparin Lines/Catheters IV Catheter Type (from Nrs): Saline Lock Urinary Cath still in place: No Assessment/Plan Assessment/Plan 1. Right subcapital femoral neck fracture, needs hip repalcement, follow up with ortho 2. Hypertension, hold lisinopril for hypotension 3. Dyslipidemia. on lipitor 4. Anemia, a combination of iron deficiency and chronic disease. 5. History of old cerebrovascular accident. 6. Probably history of seizure. on keppra 7. Hypothyroidism. on synthroid 8. Urinary tract infection. on rocephin 9. DVT prophylaxis: heparin Subjective 24 Hr Interval Summary Free Text/Dictation right hip pain Exam/Review of Systems Vital Signs Vitals Vital Signs Date Time Temp Pulse Resp B/P Pulse Ox O2 Delivery O2 Flow Rate FiO2 02/24/17 07:35 98.5 65 18 95/54 99 02/21/17 22:13 Nasal Cannula 2.0 Intake and Output 02/23/17 02/23/17 02/24/17 15:00 23:00 07:00 Intake Total 50 ml 1680 ml 400 ml Balance 50 ml 1680 ml 400 ml Exam Constitutional: alert, oriented, well developed Psych: nl mood/affect, no complaints Head: atraumatic, normocephalic Eyes: EOMI, PERRL, nl conjunctiva, nl lids ENMT: nl external ears & nose, nl lips & teeth, nl nasal mucosa & septum Neck: non-tender, supple Respiratory: clear to auscultation, normal air movement, No congested cough, No crackles/rales, No diminished breath sounds, No intercostal retraction, No labored breathing, No other, No respirations, No tactile fremitus, No wheezing Cardiovascular: nl pulses, regular rate and rhythm, No S3, No S4, No bruits, No diastolic murmur, No edema, No gallop, No irregular rhythm, No jugular venous distention (JVD), No murmurs/extra sounds, No other, No rub, No systolic murmur Gastrointestinal: nl liver, spleen, non-tender, soft, No ascites, No bowel sounds, No distended, No firm, No hepatomegaly, No mass , No other, No rebound or guarding, No splenomegaly, No surgical scars, No tender Musculoskeletal: nl extremities to inspection Extremities: normal pulses, tenderness (right hip pain), No calf tenderness, No clubbing, No cyanosis, No edema, No other, No palpable cord, No pitting pedal edema Neurological: RAVELER II-XII intact, nl mental status, nl speech, nl strength Skin: nl turgor Lymph: nl lymph nodes Results Result Diagram: 02/24/17 0425 02/24/17 0425 Results 24 hrs Laboratory Tests Test 02/24/17 04:25 White Blood Count 9.5 Red Blood Count 3.80 L Hemoglobin 9.9 L Hematocrit 32.0 L Mean Corpuscular Volume 84.2 Mean Corpuscular Hemoglobin 26.1 L Mean Corpuscular Hemoglobin Concent 30.9 L Red Cell Distribution Width 15.9 H Platelet Count 236 Mean Platelet Volume 9.5 Neutrophils % 55.9 Lymphocytes % 34.2 Monocytes % 5.6 Eosinophils % 3.7 Basophils % 0.3 Nucleated Red Blood Cells % 0.0 Neutrophils # 5.3 Lymphocytes # 3.2 H Monocytes # 0.5 Eosinophils # 0.4 Basophils # 0.0 Nucleated Red Blood Cells # 0.0 Sodium Level 140 Potassium Level 3.7 Chloride Level 102 Carbon Dioxide Level 27 Anion Gap 15 # Blood Urea Nitrogen 21 H Creatinine 0.77 Glucose Level 109 Calcium Level 8.9 Medications Medications Current Medications Lorazepam (Ativan) 1 mg Q4 PRN IV ANXIETY Last administered on 02/21/17 22:02 ; Admin Dose 1 MG; Start 02/21/17 at 22:00 Atorvastatin Calcium (Lipitor) 20 mg QHS PO Last administered on 02/23/17 20:34 ; Admin Dose 20 MG; Start 02/22/17 at 21:00 Baclofen (Lioresal) 10 mg Q8 PRN PO MUSCLE SPASMS; Start 02/22/17 at 00:30 Gabapentin (Neurontin) 300 mg TID PO Last administered on 02/24/17 12:06; Admin Dose 300 MG; Start 02/22/17 at 09:00 Levetiracetam (Keppra) 500 mg BID PO Last administered on 02/24/17 08:43; Admin Dose 500 MG; Start 02/22/17 at 09:00 Lisinopril (Zestril) 2.5 mg DAILY PO Last administered on 02/23/17 09:26; Admin Dose 2.5 MG; Start 02/22/17 at 09:00 Morphine Sulfate (morphine) 3 mg Q4H PRN IV PAIN; Start 02/22/17 at 00:30 Ondansetron HCl (Zofran Inj) 4 mg Q6H PRN IV NAUSEA AND/OR VOMITING; Start at 00:30 Ketorolac Tromethamine 15 mg 15 mg Q6H PRN IV PAIN; Start 02/22/17 at 00:30; Stop 02/25/17 at 00:29 Dextrose/Sodium Chloride 1,000 ml @ 75 mls/hr [id number] IV Last administered on 02/22/17 11:33; Admin Dose 75 MLS/HR; Start 02/22/17 at 09:00 Ceftriaxone Sodium/Sodium Chloride (Rocephin/NS) 50 ml @ 100 mls/hr Q24H IVPB Last administered on 02/24/17 12:06; Admin Dose 100 MLS/HR; Start 02/22/17 at 11 :30 Pantoprazole (Protonix Tab) 40 mg DAILY@06 PO Last administered on 02/24/17 06: 08; Admin Dose 40 MG; Start 02/23/17 at 06:00 Heparin Sodium (Porcine) (Heparin (5000 Units/0.5 ml)) 5,000 unit BID SC Last administered on 02/24/17 08:53; Admin Dose 5,000 UNIT; Start 02/22/17 at 21:00 JORGE ALBERTO MORRIS MD February 24, 2017 13:39
[2017-02-24] MEDS: POTASSIUM CHLORIDE 10 MEQ in SOD CHLORIDE 0.45% 1,000 ML IV SCH (16:04)
--- NOTE | 2017-02-24 17:48 | PN ---
DATE: 02/24/2017 CARDIOLOGY FOLLOWUP SUBJECTIVE: Discussed with the staff. Discussed with the patient's daughter at the bedside. Patie nt with no chest pain or pressure. No palpitation. Her leg pain has also improved as well. She is awaiting surgery. MEDICATIONS: Reviewed. PHYSICAL EXAMINATION: VITAL SIGNS: Temperature 98.5, heart rate of 65, blood pressure 95/54, respirations 18, saturating 99%. HEENT: Normocephalic, atraumatic. No acute distress. Pupils are equal. CARDIOVASCULAR: Regular rate and rhythm, systolic murmur. PULMONARY: With no wheezes, no rhonchi. GASTROINTESTINAL: Soft, nontender. No rebound, no guarding. EXTREMITIES: With no significant edema. NEUROLOGIC: Awake and alert, with right-sided lower extremity weakness. PSYCHIATRIC: Calm and pleasant. LABORATORY: WBC of 9.5, hemoglobin 9.9, platelets 236. Sodium 140, potassium 3.7, BUN of 21, creat inine 0.77, glucose of 109. ASSESSMENT AND PLAN: 1. Cardiovascular preop evaluation. 2. Hip fracture. 3. History of cerebrovascular accident. 4. Hypertension, under good control now. 5. Mild pulmonary hypertension, currently stable with no symptoms. 6. History of anemia. 7. History of thyroid disorder, on Synthroid. 8. Urinary tract infection. RECOMMENDATIONS: Antibiotic is being managed as per internal medicine. Awaiting the surgery. Cont inue with the current cardiac care. Dictated By: GABRIEL WILSON MD AV/ELSA Conf#: [id number] DID#: [id number] CC: ; MOSHE MARTIN MD;*EndCC*
[2017-02-24 19:42] VITALS: BP 125/60; RESP 17
[2017-02-24] MEDS: ATORVASTATIN 20 MG TAB PO SCH (20:41)
[2017-02-25 05:09] LABS: ADD SCAN DIFF NO
[2017-02-25 05:23] LABS: POTASSIUM 3.9 mmol/L (3.5-5.1)
[2017-02-25 05:26] LABS: BASOPHILS % 0.4 % (0.0-2.0); CREATININE 0.76 mg/dl (0.44-1.00); EOSINOPHILS # 0.3 10^3/ul (0.0-0.5); EOSINOPHILS % 4.3 % (0.0-7.0); HEMATOCRIT 30.6 % (37.0-47.0); HEMOGLOBIN 9.4 g/dl (12.0-16.0); LYMPHOCYTES # 3.4 10^3/ul (0.8-2.9); LYMPHOCYTES % 42.8 % (15.0-51.0); MEAN CORPUSCULAR HEMOGLOBIN 25.7 pg (29.0-33.0); MEAN CORPUSCULAR HGB CONC 30.7 g/dl (32.0-37.0); MEAN CORPUSCULAR VOLUME 83.6 fl (82.0-101.0); MEAN PLATELET VOLUME 9.1 fl (7.4-10.4); MONOCYTE # 0.5 10^3/ul (0.3-0.9); MONOCYTES % 5.7 % (0.0-11.0); NEUTROPHIL # 3.6 10^3/ul (1.6-7.5); NEUTROPHILS % 46.5 % (39.0-77.0); PLATELET COUNT 227 10^3/UL (140-415); RED BLOOD COUNT 3.66 10^6/ul (4.20-5.40); RED CELL DISTRIBUTION WIDTH 15.7 % (11.5-14.5); WHITE BLOOD COUNT 7.8 10^3/ul (4.8-10.8)
[2017-02-25 05:27] LABS: CALCIUM 8.5 mg/dl (8.4-10.2)
[2017-02-25] MEDS: LEVOTHYROXINE 25 MCG TAB PO SCH (06:03)
[2017-02-25] MEDS: PANTOPRAZOLE (EC) 40 MG TAB PO SCH (06:03)
[2017-02-25 07:37] VITALS: BP 108/55; RESP 18
[2017-02-25] MEDS: morphine 4 MG/ML VIAL IV PRN ×2 (10:20→19:59)
[2017-02-25] MEDS: LEVETIRACETAM 500 MG TAB PO SCH ×2 (10:21→20:40)
[2017-02-25] MEDS: HEPARIN 5,000 UNIT/0.5 ML VIAL SC SCH ×2 (10:21→20:41)
[2017-02-25] MEDS: GABAPENTIN 300 MG CAP PO SCH ×3 (10:21→20:40)
[2017-02-25] MEDS: POTASSIUM CHLORIDE 10 MEQ in SOD CHLORIDE 0.45% 1,000 ML IV SCH (10:22)
--- NOTE | 2017-02-25 10:42 | PN ---
DATE: 02/25/2017 CARDIOLOGY FOLLOWUP SUBJECTIVE: Discussed with the staff, discussed with the patient's daughter. Patient having no manny st pain or pressure, but hip pain has improved. MEDICATIONS: Reviewed as per medication reconciliation, personally reviewed. PHYSICAL EXAMINATION: VITAL SIGNS: Temperature 97.5, heart rate of 67, blood pressure 108/55, respirations 18, saturating 97%. HEENT: Normocephalic, atraumatic. Pupils are equal. CARDIOVASCULAR: Regular rate and rhythm. Systolic murmur. PULMONARY: With no wheezes. GASTROINTESTINAL: Soft, nontender. EXTREMITIES: Status post fracture, otherwise no cyanosis, no clubbing. NEUROLOGIC: Awake, responds appropriately. PSYCHIATRIC: Appears to be calm and pleasant. LABORATORY: WBC of 7.8, hemoglobin 9.4, platelets of 227. Sodium 139, potassium 3.9, BUN of 22, cr eatinine , glucose of 95. ASSESSMENT AND PLAN: 1. Cardiovascular preop evaluation. 2. Hip fracture. 3. History of cerebrovascular accident. 4. Hypertension, under good control. 5. History of pulmonary hypertension with no active symptoms and no evidence of congestive heart fa ilure clinically. 6. Anemia. 7. Thyroid disorder on Synthroid. 8. Positive for urinary tract infection, on antibiotics. RECOMMENDATIONS: We will continue with the current cardiac care. Please see my original consultati on for risk stratification for the surgery from the cardiac standpoint. Antibiotic is managed as pe r internal medicine. However, we are awaiting surgery. Dictated By: GABRIEL PAL/ELSA Conf#: [id number] DID#: [id number] CC: ;*EndCC*
[2017-02-25] MEDS: CEFTRIAXONE 500 MG in SOD CHLORIDE 0.9% 50 ML IVPB SCH (12:46)
--- NOTE | 2017-02-25 14:23 | PN ---
Date/Time of Note Date/Time of Note DATE: 02/25/17 TIME: 14:21 Assessment/Plan VTE Prophylaxis VTE Prophylaxis Intervention: heparin Lines/Catheters IV Catheter Type (from Nrs): Peripheral IV Urinary Cath still in place: No Assessment/Plan Assessment/Plan 1. Right subcapital femoral neck fracture, needs hip replacement, awaiting for ortho, talked to case manager specialist 2. Hypertension, hold lisinopril for hypotension 3. Dyslipidemia. on lipitor 4. Anemia, a combination of iron deficiency and chronic disease. 5. History of old cerebrovascular accident. 6. Probably history of seizure. on keppra 7. Hypothyroidism. on synthroid 8. Urinary tract infection. on rocephin 9. DVT prophylaxis: heparin Subjective 24 Hr Interval Summary Free Text/Dictation right hip pain Exam/Review of Systems Vital Signs Vitals Vital Signs Date Time Temp Pulse Resp B/P Pulse Ox O2 Delivery O2 Flow Rate FiO2 02/25/17 07:50 2.0 02/25/17 07:37 97.5 67 18 108/55 97 02/21/17 22:13 Nasal Cannula Intake and Output 02/24/17 02/24/17 02/25/17 15:00 23:00 07:00 Intake Total 1230 ml 600 ml Balance 1230 ml 600 ml Exam Constitutional: alert, oriented, well developed Psych: nl mood/affect, no complaints Head: atraumatic, normocephalic Eyes: EOMI, PERRL, nl conjunctiva, nl lids ENMT: nl external ears & nose, nl lips & teeth, nl nasal mucosa & septum Neck: non-tender, supple Respiratory: clear to auscultation, normal air movement, No congested cough, No crackles/rales, No diminished breath sounds, No intercostal retraction, No labored breathing, No other, No respirations, No tactile fremitus, No wheezing Cardiovascular: nl pulses, regular rate and rhythm, No S3, No S4, No bruits, No diastolic murmur, No edema, No gallop, No irregular rhythm, No jugular venous distention (JVD), No murmurs/extra sounds, No other, No rub, No systolic murmur Gastrointestinal: nl liver, spleen, non-tender, soft, No ascites, No bowel sounds, No distended, No firm, No hepatomegaly, No mass , No other, No rebound or guarding, No splenomegaly, No surgical scars, No tender Musculoskeletal: other (right hip pain) Extremities: normal pulses, tenderness (right hip pain), No calf tenderness, No clubbing, No cyanosis, No edema, No other, No palpable cord, No pitting pedal edema Neurological: MANAGER MEDIA II-XII intact, nl mental status, nl speech, nl strength Skin: nl turgor Lymph: nl lymph nodes Results Result Diagram: 02/25/1743402/25/17434 Results 24 hrs Laboratory Tests Test 02/25/17 04:35 White Blood Count 7.8 Red Blood Count 3.66 L Hemoglobin 9.4 L Hematocrit 30.6 L Mean Corpuscular Volume 83.6 Mean Corpuscular Hemoglobin 25.7 L Mean Corpuscular Hemoglobin Concent 30.7 L Red Cell Distribution Width 15.7 H Platelet Count 227 Mean Platelet Volume 9.1 Neutrophils % 46.5 Lymphocytes % 42.8 Monocytes % 5.7 Eosinophils % 4.3 Basophils % 0.4 Nucleated Red Blood Cells % 0.0 Neutrophils # 3.6 Lymphocytes # 3.4 H Monocytes # 0.5 Eosinophils # 0.3 Basophils # 0.0 Nucleated Red Blood Cells # 0.0 Sodium Level 139 Potassium Level 3.9 Chloride Level 103 Carbon Dioxide Level 28 Anion Gap 12 Blood Urea Nitrogen 22 H Creatinine 0.76 Glucose Level 95 Calcium Level 8.5 Medications Medications Current Medications Lorazepam (Ativan) 1 mg Q4 PRN IV ANXIETY Last administered on 02/21/17 22:02 ; Admin Dose 1 MG; Start 02/21/17 at 22:00 Atorvastatin Calcium (Lipitor) 20 mg QHS PO Last administered on 02/24/17 20:41 ; Admin Dose 20 MG; Start 02/22/17 at 21:00 Baclofen (Lioresal) 10 mg Q8 PRN PO MUSCLE SPASMS; Start 02/22/17 at 00:30 Gabapentin (Neurontin) 300 mg TID PO Last administered on 02/25/17 12:46; Admin Dose 300 MG; Start 02/22/17 at 09:00 Levetiracetam (Keppra) 500 mg BID PO Last administered on 02/25/17 10:21; Admin Dose 500 MG; Start 02/22/17 at 09:00 Morphine Sulfate (morphine) 3 mg Q4H PRN IV PAIN; Start 02/22/17 at 00:30 Ondansetron HCl 4 mg 4 mg Q6H PRN IV NAUSEA AND/OR VOMITING; Start 02/22/17 at 00:30 Ceftriaxone Sodium/Sodium Chloride (Rocephin/NS) 50 ml @ 100 mls/hr Q24H IVPB Last administered on 02/25/17 12:46; Admin Dose 100 MLS/HR; Start 02/22/17 at 11 :30 Pantoprazole (Protonix Tab) 40 mg DAILY@06 PO Last administered on 02/25/17 06: 03; Admin Dose 40 MG; Start 02/23/17 at 06:00 Heparin Sodium (Porcine) 5000 unit 5,000 unit BID SC Last administered on 10:21; Admin Dose 5,000 UNIT; Start 02/22/17 at 21:00 Potassium Chloride/Sodium Chloride (KCl/1/2 NS) 1,005 ml @ 50 mls/hr Q20H6M IV Last administered on 02/25/17 10:22; Admin Dose 50 MLS/HR; Start 02/24/17 at 15 :00 JORGE ALBERTO MORRIS MD February 25, 2017 14:23
[2017-02-25 19:27] VITALS: BP 126/59; RESP 19
[2017-02-25] MEDS: ATORVASTATIN 20 MG TAB PO SCH (20:40)
[2017-02-26 04:53] LABS: ADD SCAN DIFF NO
[2017-02-26 05:01] LABS: BASOPHILS % 0.5 % (0.0-2.0); EOSINOPHILS # 0.3 10^3/ul (0.0-0.5); EOSINOPHILS % 3.7 % (0.0-7.0); HEMATOCRIT 31.2 % (37.0-47.0); HEMOGLOBIN 9.8 g/dl (12.0-16.0); LYMPHOCYTES # 3.6 10^3/ul (0.8-2.9); LYMPHOCYTES % 42.6 % (15.0-51.0); MEAN CORPUSCULAR HEMOGLOBIN 25.9 pg (29.0-33.0); MEAN CORPUSCULAR HGB CONC 31.4 g/dl (32.0-37.0); MEAN CORPUSCULAR VOLUME 82.3 fl (82.0-101.0); MONOCYTE # 0.4 10^3/ul (0.3-0.9); MONOCYTES % 4.7 % (0.0-11.0); NEUTROPHIL # 4.1 10^3/ul (1.6-7.5); NEUTROPHILS % 48.3 % (39.0-77.0); PLATELET COUNT 235 10^3/UL (140-415); RED BLOOD COUNT 3.79 10^6/ul (4.20-5.40); RED CELL DISTRIBUTION WIDTH 15.5 % (11.5-14.5); WHITE BLOOD COUNT 8.5 10^3/ul (4.8-10.8)
[2017-02-26 05:34] LABS: CALCIUM 8.8 mg/dl (8.4-10.2); CREATININE 0.7 mg/dl (0.44-1.00); POTASSIUM 4.3 mmol/L (3.5-5.1)
[2017-02-26] MEDS: PANTOPRAZOLE (EC) 40 MG TAB PO SCH (05:52)
[2017-02-26] MEDS: LEVOTHYROXINE 25 MCG TAB PO SCH (05:53)
[2017-02-26] MEDS: POTASSIUM CHLORIDE 10 MEQ in SOD CHLORIDE 0.45% 1,000 ML IV SCH (07:42)
[2017-02-26 08:04] VITALS: BP 109/55; RESP 19
[2017-02-26] MEDS: GABAPENTIN 300 MG CAP PO SCH ×3 (09:58→21:23)
[2017-02-26] MEDS: LEVETIRACETAM 500 MG TAB PO SCH ×2 (09:58→21:23)
[2017-02-26] MEDS: HEPARIN 5,000 UNIT/0.5 ML VIAL SC SCH ×2 (09:59→21:23)
[2017-02-26] MEDS: CEFTRIAXONE 500 MG in SOD CHLORIDE 0.9% 50 ML IVPB SCH (12:43)
--- NOTE | 2017-02-26 13:29 | PN ---
Date/Time of Note Date/Time of Note DATE: 02/26/17 TIME: 13:26 Assessment/Plan VTE Prophylaxis VTE Prophylaxis Intervention: heparin Lines/Catheters IV Catheter Type (from Nrs): Peripheral IV Urinary Cath still in place: No Assessment/Plan Assessment/Plan 1. Right subcapital femoral neck fracture, needs hip replacement, awaiting for ortho, talked to dependency case manager 2. Hypertension, hold lisinopril for hypotension 3. Dyslipidemia. on lipitor 4. Anemia, a combination of iron deficiency and chronic disease. 5. History of old cerebrovascular accident. 6. Probably history of seizure. on keppra 7. Hypothyroidism. on synthroid 8. Urinary tract infection. on rocephin 9. DVT prophylaxis: heparin 10. Constipation, laxative Subjective 24 Hr Interval Summary Free Text/Dictation right hip pain, constipated Exam/Review of Systems Vital Signs Vitals Vital Signs Date Time Temp Pulse Resp B/P Pulse Ox O2 Delivery O2 Flow Rate FiO2 02/26/17 08:04 98.0 63 19 109/55 97 02/25/17 20:10 Nasal Cannula 2.0 Intake and Output 02/25/17 02/25/17 02/26/17 15:00 23:00 07:00 Intake Total 600 ml 1550 ml 850 ml Balance 600 ml 1550 ml 850 ml Exam Constitutional: alert, oriented, well developed Psych: nl mood/affect, no complaints Head: atraumatic, normocephalic Eyes: EOMI, PERRL, nl conjunctiva, nl lids ENMT: nl external ears & nose, nl lips & teeth, nl nasal mucosa & septum Neck: non-tender, supple Respiratory: clear to auscultation, normal air movement, No congested cough, No crackles/rales, No diminished breath sounds, No intercostal retraction, No labored breathing, No other, No respirations, No tactile fremitus, No wheezing Cardiovascular: nl pulses, regular rate and rhythm, No S3, No S4, No bruits, No diastolic murmur, No edema, No gallop, No irregular rhythm, No jugular venous distention (JVD), No murmurs/extra sounds, No other, No rub, No systolic murmur Gastrointestinal: nl liver, spleen, non-tender, soft, No ascites, No bowel sounds, No distended, No firm, No hepatomegaly, No mass , No other, No rebound or guarding, No splenomegaly, No surgical scars, No tender Musculoskeletal: other (right hip pain) Extremities: normal pulses, tenderness (right hip pain) Neurological: CLINICAL APPEALS REVIEWER II-XII intact, nl mental status, nl speech, nl strength Skin: nl turgor Lymph: nl lymph nodes Results Result Diagram: 02/26/17 0425 02/26/17 0420 Results 24 hrs Laboratory Tests Test 02/26/17 04:20 02/26/17 04:25 Sodium Level 136 Potassium Level 4.3 Chloride Level 103 Carbon Dioxide Level 27 Anion Gap 10 Blood Urea Nitrogen 16 Creatinine 0.70 Glucose Level 103 Calcium Level 8.8 White Blood Count 8.5 Red Blood Count 3.79 L Hemoglobin 9.8 L Hematocrit 31.2 L Mean Corpuscular Volume 82.3 Mean Corpuscular Hemoglobin 25.9 L Mean Corpuscular Hemoglobin Concent 31.4 L Red Cell Distribution Width 15.5 H Platelet Count 235 Mean Platelet Volume 9.0 Neutrophils % 48.3 Lymphocytes % 42.6 Monocytes % 4.7 Eosinophils % 3.7 Basophils % 0.5 Nucleated Red Blood Cells % 0.0 Neutrophils # 4.1 Lymphocytes # 3.6 H Monocytes # 0.4 Eosinophils # 0.3 Basophils # 0.0 Nucleated Red Blood Cells # 0.0 Medications Medications Current Medications Lorazepam (Ativan) 1 mg Q4 PRN IV ANXIETY Last administered on 02/21/17 22:02 ; Admin Dose 1 MG; Start 02/21/17 at 22:00 Atorvastatin Calcium (Lipitor) 20 mg QHS PO Last administered on 02/25/17 20:40 ; Admin Dose 20 MG; Start 02/22/17 at 21:00 Baclofen (Lioresal) 10 mg Q8 PRN PO MUSCLE SPASMS; Start 02/22/17 at 00:30 Gabapentin (Neurontin) 300 mg TID PO Last administered on 02/26/17 13:07; Admin Dose 300 MG; Start 02/22/17 at 09:00 Levetiracetam (Keppra) 500 mg BID PO Last administered on 02/26/17 09:58; Admin Dose 500 MG; Start 02/22/17 at 09:00 Morphine Sulfate (morphine) 3 mg Q4H PRN IV PAIN Last administered on 02/25/17 19:59; Admin Dose 3 MG; Start 02/22/17 at 00:30 Ondansetron HCl 4 mg 4 mg Q6H PRN IV NAUSEA AND/OR VOMITING; Start 02/22/17 at 00:30 Ceftriaxone Sodium/Sodium Chloride (Rocephin/NS) 50 ml @ 100 mls/hr Q24H IVPB Last administered on 02/26/17 12:43; Admin Dose 100 MLS/HR; Start 02/22/17 at 11 :30 Pantoprazole (Protonix Tab) 40 mg DAILY@06 PO Last administered on 02/26/17 05: 52; Admin Dose 40 MG; Start 02/23/17 at 06:00 Heparin Sodium (Porcine) 5000 unit 5,000 unit BID SC Last administered on 09:59; Admin Dose 5,000 UNIT; Start 02/22/17 at 21:00 Potassium Chloride/Sodium Chloride (KCl/1/2 NS) 1,005 ml @ 50 mls/hr Q20H6M IV Last administered on 02/26/17 07:42; Admin Dose 50 MLS/HR; Start 02/24/17 at 15 :00 JORGE ALBERTO MORRIS MD February 26, 2017 13:29
[2017-02-26] MEDS ORDERED: BISACODYL (EC) 5 MG TAB PO ONE (13:30)
[2017-02-26] MEDS: DOCUSATE SODIUM 100 MG CAP PO SCH (14:42)
[2017-02-26 19:00] VITALS: BP 168/67; RESP 18
[2017-02-26] MEDS: ATORVASTATIN 20 MG TAB PO SCH (21:23)
[2017-02-27] MEDS: POTASSIUM CHLORIDE 10 MEQ in SOD CHLORIDE 0.45% 1,000 ML IV SCH ×2 (03:13→23:15)
[2017-02-27 05:34] LABS: ADD SCAN DIFF NO
[2017-02-27 05:36] LABS: BASOPHILS % 0.2 % (0.0-2.0); EOSINOPHILS # 0.3 10^3/ul (0.0-0.5); EOSINOPHILS % 3.5 % (0.0-7.0); HEMATOCRIT 34.2 % (37.0-47.0); HEMOGLOBIN 10.9 g/dl (12.0-16.0); LYMPHOCYTES # 3.1 10^3/ul (0.8-2.9); LYMPHOCYTES % 34.8 % (15.0-51.0); MEAN CORPUSCULAR HEMOGLOBIN 26.2 pg (29.0-33.0); MEAN CORPUSCULAR HGB CONC 31.9 g/dl (32.0-37.0); MEAN CORPUSCULAR VOLUME 82.2 fl (82.0-101.0); MEAN PLATELET VOLUME 9.2 fl (7.4-10.4); MONOCYTE # 0.5 10^3/ul (0.3-0.9); MONOCYTES % 5.7 % (0.0-11.0); NEUTROPHIL # 4.9 10^3/ul (1.6-7.5); NEUTROPHILS % 55.5 % (39.0-77.0); PLATELET COUNT 280 10^3/UL (140-415); RED BLOOD COUNT 4.16 10^6/ul (4.20-5.40); RED CELL DISTRIBUTION WIDTH 15.3 % (11.5-14.5); WHITE BLOOD COUNT 8.9 10^3/ul (4.8-10.8)
[2017-02-27 05:58] LABS: CALCIUM 9.2 mg/dl (8.4-10.2); CREATININE 0.7 mg/dl (0.44-1.00)
[2017-02-27] MEDS: LEVOTHYROXINE 25 MCG TAB PO SCH (05:58)
[2017-02-27] MEDS: PANTOPRAZOLE (EC) 40 MG TAB PO SCH (05:58)
[2017-02-27 07:57] VITALS: BP 114/55; RESP 19
[2017-02-27] MEDS: GABAPENTIN 300 MG CAP PO SCH ×3 (09:07→20:55)
[2017-02-27] MEDS: LEVETIRACETAM 500 MG TAB PO SCH ×2 (09:07→20:55)
[2017-02-27] MEDS: DOCUSATE SODIUM 100 MG CAP PO SCH (09:07)
[2017-02-27] MEDS: HEPARIN 5,000 UNIT/0.5 ML VIAL SC SCH ×2 (09:13→20:56)
[2017-02-27] MEDS: morphine 4 MG/ML VIAL IV PRN ×2 (09:14→23:25)
--- NOTE | 2017-02-27 11:30 | PN ---
Date/Time of Note Date/Time of Note DATE: 02/27/17 TIME: 11:26 Assessment/Plan VTE Prophylaxis VTE Prophylaxis Intervention: LMWH Lines/Catheters IV [facility]ter Type (from [facility]): Peripheral IV Urinary Cath still in place: No Assessment/Plan Assessment/Plan 1. Right subcapital femoral neck fracture, needs hip replacement, awaiting for ortho, talked to case reviewer 2. Hypertension, hold lisinopril for hypotension 3. Dyslipidemia. on lipitor 4. Anemia, a combination of iron deficiency and chronic disease. 5. History of old cerebrovascular accident. 6. Probably history of seizure. on keppra 7. Hypothyroidism. on synthroid 8. Urinary tract infection. on rocephin 9. DVT prophylaxis: heparin 10. I talked to Dr. Hawkins and Dr. Mathews, Dr. Kuhn on 02/24/2017. Dr. Hawkins states he was not permaculture contractor that week. Dr. Mathews was not available. I have been talking with case reviewer, trying to find an orthopedics who is willing to operate on her. I left a message to Dr. Kuhn today. Subjective 24 Hr Interval Summary Free Text/Dictation right hip pain Exam/Review of Systems Vital Signs Vitals Vital Signs Date Time Temp Pulse Resp B/P Pulse Ox O2 Delivery O2 Flow Rate FiO2 02/27/17 07:57 99.0 84 19 114/55 98 02/26/17 20:30 Nasal Cannula 02/25/17 20:10 2.0 Intake and Output 02/26/17 02/26/17 02/27/17 15:00 23:00 07:00 Intake Total 50 ml 900 ml 790 ml Balance 50 ml 900 ml 790 ml Exam Constitutional: alert, oriented, well developed Psych: nl mood/affect, no complaints Head: atraumatic, normocephalic Eyes: EOMI, PERRL, nl conjunctiva, nl lids, nl sclera ENMT: nl external ears & nose, nl lips & teeth, nl nasal mucosa & septum Neck: non-tender, supple Respiratory: clear to auscultation, normal air movement, No congested cough, No crackles/rales, No diminished breath sounds, No intercostal retraction, No labored breathing, No other, No respirations, No tactile fremitus, No wheezing Cardiovascular: nl pulses, regular rate and rhythm, No S3, No S4, No bruits, No diastolic murmur, No edema, No gallop, No irregular rhythm, No jugular venous distention (JVD), No murmurs/extra sounds, No other, No rub, No systolic murmur Gastrointestinal: nl liver, spleen, non-tender, soft, No ascites, No bowel sounds, No distended, No firm, No hepatomegaly, No mass , No other, No rebound or guarding, No splenomegaly, No surgical scars, No tender Musculoskeletal: other (right hip pain) Extremities: tenderness (right hip pain), No calf tenderness, No clubbing, No cyanosis, No edema, No normal pulses, No other, No palpable cord, No pitting pedal edema Neurological: REALTY LOAN SPECIALIST II-XII intact, nl mental status, nl speech, nl strength Skin: nl turgor Lymph: nl lymph nodes Results Result Diagram: 02/27/17 04302/27/17 0430 Results 24 hrs Laboratory Tests Test 02/27/17 04:30 White Blood Count 8.9 Red Blood Count 4.16 L Hemoglobin 10.9 L Hematocrit 34.2 L Mean Corpuscular Volume 82.2 Mean Corpuscular Hemoglobin 26.2 L Mean Corpuscular Hemoglobin Concent 31.9 L Red Cell Distribution Width 15.3 H Platelet Count 280 Mean Platelet Volume 9.2 Neutrophils % 55.5 Lymphocytes % 34.8 Monocytes % 5.7 Eosinophils % 3.5 Basophils % 0.2 Nucleated Red Blood Cells % 0.0 Neutrophils # 4.9 Lymphocytes # 3.1 H Monocytes # 0.5 Eosinophils # 0.3 Basophils # 0.0 Nucleated Red Blood Cells # 0.0 Sodium Level 136 Potassium Level 4.0 Chloride Level 104 Carbon Dioxide Level 26 Anion Gap 10 Blood Urea Nitrogen 14 Creatinine 0.70 Glucose Level 111 Calcium Level 9.2 Medications Medications Current Medications Lorazepam (Ativan) 1 mg Q4 PRN IV ANXIETY Last administered on 02/21/17 22:02 ; Admin Dose 1 MG; Start 02/21/17 at 22:00 Atorvastatin Calcium (Lipitor) 20 mg QHS PO Last administered on 02/26/17 21:23 ; Admin Dose 20 MG; Start 02/22/17 at 21:00 Baclofen (Lioresal) 10 mg Q8 PRN PO MUSCLE SPASMS; Start 02/22/17 at 00:30 Gabapentin (Neurontin) 300 mg TID PO Last administered on 02/27/17 09:07; Admin Dose 300 MG; Start 02/22/17 at 09:00 Levetiracetam (Keppra) 500 mg BID PO Last administered on 02/27/17 09:07; Admin Dose 500 MG; Start 02/22/17 at 09:00 Morphine Sulfate (morphine) 3 mg Q4H PRN IV PAIN Last administered on 02/27/17 09:14; Admin Dose 3 MG; Start 02/22/17 at 00:30 Ondansetron HCl 4 mg 4 mg Q6H PRN IV NAUSEA AND/OR VOMITING; Start 02/22/17 at 00:30 Ceftriaxone Sodium/Sodium Chloride (Rocephin/NS) 50 ml @ 100 mls/hr Q24H IVPB Last administered on 02/26/17 12:43; Admin Dose 100 MLS/HR; Start 02/22/17 at 11 :30 Pantoprazole (Protonix Tab) 40 mg DAILY@06 PO Last administered on 02/27/17 05: 58; Admin Dose 40 MG; Start 02/23/17 at 06:00 Heparin Sodium (Porcine) 5000 unit 5,000 unit BID SC Last administered on 09:13; Admin Dose 5,000 UNIT; Start 02/22/17 at 21:00 Potassium Chloride/Sodium Chloride (KCl/1/2 NS) 1,005 ml @ 50 mls/hr Q20H6M IV Last administered on 02/27/17 03:13; Admin Dose 50 MLS/HR; Start 02/24/17 at 15 :00 Docusate Sodium (Colace) 100 mg DAILY PO Last administered on 02/27/17 09:07; Admin Dose 100 MG; Start 02/26/17 at 13:30 JORGE ALBERTO MORRIS MD February 27, 2017 11:30
[2017-02-27] MEDS: CEFTRIAXONE 500 MG in SOD CHLORIDE 0.9% 50 ML IVPB SCH (11:42)
[2017-02-27 19:00] VITALS: BP 129/60; RESP 18
[2017-02-27] MEDS: ATORVASTATIN 20 MG TAB PO SCH (20:55)
[2017-02-28] MEDS: LEVOTHYROXINE 25 MCG TAB PO SCH (06:31)
[2017-02-28] MEDS: PANTOPRAZOLE (EC) 40 MG TAB PO SCH (06:31)
[2017-02-28 08:32] VITALS: BP 119/72; RESP 18
[2017-02-28] MEDS: GABAPENTIN 300 MG CAP PO SCH ×3 (08:45→20:35)
[2017-02-28] MEDS: morphine 4 MG/ML VIAL IV PRN ×2 (08:45→13:28)
[2017-02-28] MEDS: DOCUSATE SODIUM 100 MG CAP PO SCH (08:45)
[2017-02-28] MEDS: LEVETIRACETAM 500 MG TAB PO SCH ×2 (08:45→20:35)
[2017-02-28] MEDS: HEPARIN 5,000 UNIT/0.5 ML VIAL SC SCH ×2 (08:49→20:53)
[2017-02-28] MEDS: CEFTRIAXONE 500 MG in SOD CHLORIDE 0.9% 50 ML IVPB SCH (11:44)
--- NOTE | 2017-02-28 14:54 | PN ---
Date/Time of Note Date/Time of Note DATE: 02/28/17 TIME: 14:49 Assessment/Plan VTE Prophylaxis VTE Prophylaxis Intervention: heparin Lines/Catheters IV C[facility] Type [facility]from [facility] Peripheral IV Urinary Cath still in place: No Assessment/Plan Problems: (1) Seizure as late effect of cerebrovascular accident (CVA) Status: Chronic Comment: She remains on her antiseizure medications without evidence of activity. 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 She was ambulatory to a modest extent prior to falling with a hip fracture. This is going to make rehabilitation after invasive surgical procedure rather challenging. As such the benefits and risks of the surgery are being determined between the orthopedist and the family. (5) Anemia Status: Chronic Comment: Check labs treat as appropriate (6) Hyperlipidemia Status: Chronic Comment: Patient is on statin therapy with effective control of cholesterols Qualifiers: Hyperlipidemia type: pure hypercholesterolemia Qualified Code: E78.00 - Pure hypercholesterolemia (7) Osteoporosis Status: Chronic Comment: This led to her fracture. At this time would not give additional aggressive medication such as Forteo alendronate can be given after we have determined where we are going with her surgical options or nonsurgical options Qualifiers: Osteoporosis type: age-related Presence of current pathological fracture: with current pathological fracture Encounter type: initial encounter Qualified Code: M80.00XA - Age-related osteoporosis with current pathological fracture, initial encounter (8) Hip fracture, right Status: Acute Comment: She has been seen in consultation most graciously by Dr. Kaci Kuhn. He has kindly explained to the family the benefits and goals of treatment and risks of therapeutic interventions. There considering their options with a final determination in the next 24 hours. Physical therapy will see the patient when physical therapy is actively doing evaluations Qualifiers: Encounter type: initial encounter Fracture type: closed Qualified Code: S72.001A - Hip fracture, right, closed, initial encounter (9) Hypothyroidism (acquired) Status: Chronic Comment: Maintain medication replacement therapy (10) Urinary tract infection Status: Acute Comment: Completing antibiotic therapy Qualifiers: Urinary tract infection type: acute cystitis Hematuria presence: without hematuria Qualified Code: N30.00 - Acute cystitis without hematuria Subjective 24 Hr Interval Summary Free Text/Dictation Patient lying in bed responds in Jordanian somewhat Constitutional: no complaints Respiratory: no complaints Cardiovascular: no complaints Gastrointestinal: no complaints Exam/Review of Systems Vital Signs Vitals Vital Signs Date Time Temp Pulse Resp B/P Pulse Ox O2 Delivery O2 Flow Rate FiO2 02/28/17 08:32 97.5 77 18 119/72 92 02/26/17 20:30 Nasal Cannula 02/25/17 20:10 2.0 Intake and Output 02/27/17 02/27/17 02/28/17 15:00 23:00 07:00 Intake Total 50 ml 1300 ml 950 ml Balance 50 ml 1300 ml 950 ml Exam Constitutional: alert, oriented Neck: non-tender, supple Respiratory: clear to auscultation, normal air movement Cardiovascular: nl pulses, regular rate and rhythm Gastrointestinal: nl liver, spleen, non-tender, soft Extremities: other (Marked tenderness at right hip good pulses. Muscularly weak and right side) Neurological: other (Right-sided weakness) Results Result Diagram: 02/27/1742902/27/17 043 Medications Medications Current Medications Lorazepam (Ativan) 1 mg Q4 PRN IV ANXIETY Last administered on 02/21/17 22:02 ; Admin Dose 1 MG; Start 02/21/17 at 22:00 Atorvastatin Calcium (Lipitor) 20 mg QHS PO Last administered on 02/27/17 20:55 ; Admin Dose 20 MG; Start 02/22/17 at 21:00 Baclofen (Lioresal) 10 mg Q8 PRN PO MUSCLE SPASMS; Start 02/22/17 at 00:30 Gabapentin (Neurontin) 300 mg TID PO Last administered on 02/28/17 12:39; Admin Dose 300 MG; Start 02/22/17 at 09:00 Levetiracetam (Keppra) 500 mg BID PO Last administered on 02/28/17 08:45; Admin Dose 500 MG; Start 02/22/17 at 09:00 Morphine Sulfate (morphine) 3 mg Q4H PRN IV PAIN Last administered on 02/28/17 13:28; Admin Dose 3 MG; Start 02/22/17 at 00:30 Ondansetron HCl 4 mg 4 mg Q6H PRN IV NAUSEA AND/OR VOMITING; Start 02/22/17 at 00:30 Ceftriaxone Sodium/Sodium Chloride (Rocephin/NS) 50 ml @ 100 mls/hr Q24H IVPB Last administered on 02/28/17 11:44; Admin Dose 100 MLS/HR; Start 02/22/17 at 11 :30 Pantoprazole (Protonix Tab) 40 mg DAILY@06 PO Last administered on 02/28/17 06: 31; Admin Dose 40 MG; Start 02/23/17 at 06:00 Heparin Sodium (Porcine) 5000 unit 5,000 unit BID SC Last administered on 08:49; Admin Dose 5,000 UNIT; Start 02/22/17 at 21:00 Potassium Chloride/Sodium Chloride (KCl/1/2 NS) 1,005 ml @ 50 mls/hr Q20H6M IV Last administered on 02/27/17 23:15; Admin Dose 50 MLS/HR; Start 02/24/17 at 15 :00 Docusate Sodium (Colace) 100 mg DAILY PO Last administered on 02/28/17 08:45; Admin Dose 100 MG; Start 02/26/17 at 13:30 CARRIE DUPREE MD February 28, 2017 14:54
[2017-02-28 16:26] LABS: IRON 43 ug/dl (35-150)
[2017-02-28 16:35] LABS: TOTAL IRON BINDING CAPACITY 315 ug/dl (241-421)
[2017-02-28] MEDS: METOPROLOL (XL) 25 MG TAB PO SCH (17:30)
[2017-02-28 19:54] VITALS: BP 120/57; RESP 18
[2017-02-28] MEDS: ATORVASTATIN 20 MG TAB PO SCH (20:35)
[2017-02-28] MEDS: POTASSIUM CHLORIDE 10 MEQ in SOD CHLORIDE 0.45% 1,000 ML IV SCH (20:35)
[2017-03-01] VITALS (22 sets, daily range): BP systolic 104–137; BP diastolic 54–78; PULSE 86–98; RESP 12–20
[2017-03-01] MEDS: PANTOPRAZOLE (EC) 40 MG TAB PO SCH (03:45)
[2017-03-01] MEDS: LEVOTHYROXINE 25 MCG TAB PO SCH (03:46)
[2017-03-01] MEDS ORDERED: CEFAZOLIN 1 GM/50 ML (PMX) 50 ML IVPB SCH (05:00)
[2017-03-01] MEDS ORDERED: EPHEDrine SULFATE 50 MG/5 ML SYG ONE (07:00)
[2017-03-01] MEDS ORDERED: PROPOFOL 20 ML ONE (07:43)
[2017-03-01] MEDS ORDERED: MIDAZOLAM 1 MG/ML 2 ML INJ ONE (07:44)
[2017-03-01] MEDS ORDERED: morphine SULFATE/PF (10 MG/10 ML) INJ ONE (07:44)
[2017-03-01] MEDS ORDERED: ETOMIDATE 20 MG INJ ONE (07:44)
[2017-03-01] MEDS ORDERED: METOCLOPRAMIDE 10 MG INJ ONE (07:46)
[2017-03-01] MEDS: DOCUSATE SODIUM 100 MG CAP PO SCH (07:47)
[2017-03-01] MEDS ORDERED: FENTAnyl 50 MCG/ML VIAL ONE (07:47)
[2017-03-01] MEDS: GABAPENTIN 300 MG CAP PO SCH ×3 (07:49→21:05)
[2017-03-01] MEDS: HEPARIN 5,000 UNIT/0.5 ML VIAL SC SCH ×2 (07:50→21:08)
[2017-03-01] MEDS ORDERED: POLYMYXIN/BACITRACIN 1L IRRIG ONE (08:39)
[2017-03-01] MEDS ORDERED: METOCLOPRAMIDE 10 MG INJ IV PRN (09:00)
[2017-03-01] MEDS ORDERED: ONDANSETRON 4 MG INJ IV PRN ×2 (09:00)
[2017-03-01] MEDS ORDERED: HYDROmorphONE (0.2 MG/ML) 10ML SYG IV PRN ×3 (09:00)
[2017-03-01] MEDS ORDERED: NALOXONE (0.4 MG/ML) INJ IV PRN (09:00)
[2017-03-01] MEDS ORDERED: MEPERIDINE 25 MG INJ IV PRN (09:00)
[2017-03-01] MEDS: METOPROLOL (XL) 25 MG TAB PO SCH (09:00)
[2017-03-01] MEDS ORDERED: HYDROmorphONE 1 MG/ML SYG IV PRN ×3 (09:00)
[2017-03-01] MEDS ORDERED: DIPHENHYDRAMINE 50 MG INJ IV PRN ×2 (09:00)
--- NOTE | 2017-03-01 09:57 | CONS ---
DATE OF ADMISSION: 02/21/2017 DATE OF CONSULTATION: 02/28/2017 CHIEF COMPLAINT: Right hip pain. HISTORY OF PRESENT ILLNESS: This is an 82-year-old female with multiple medical comorbidities who p resented to the emergency department on 02/21/2017 with right hip pain. Patient was subsequently fo und to have a nondisplaced right subcapital femoral neck fracture. The on-call orthopedic surgeon mora tsang refused to see the patient. I was notified by the hospitalist on 02/27/2017 regarding the patie nt. The patient lives at home. She is a minimal ambulator. According to her daughter, she had a previo us cerebrovascular accident with a right lower extremity weakness. She denies any loss of conscious ness. She is complaining of pain in her right groin. She has no other complaints. PAST MEDICAL HISTORY: Hypertension, dyslipidemia, anemia, cerebrovascular accident with right lower extremity weakness, hypothyroidism, seizure disorder. MEDICATIONS: 1. Baclofen. 2. Lipitor. 3. Lisinopril. 4. Aspirin. 5. Gabapentin. 6. Keppra. 7. Synthroid. PAST SURGICAL HISTORY: None. SOCIAL HISTORY: The patient lives with her daughter. She denies tobacco, alcohol or drug use. Acc ording to the daughter, she is a minimal ambulator due to the right lower extremity weakness. FAMILY HISTORY: Noncontributory. ALLERGIES: NO KNOWN DRUG ALLERGIES. REVIEW OF SYSTEMS: Negative except per HPI. VITAL SIGNS: Blood pressure 146/80, heart rate of 74, respiratory rate of 20, temperature of 98.1. GENERAL: Patient is lying in bed. She is comfortable. She is alert and oriented x1. RIGHT LOWER EXTREMITY: There are no open wounds. The right hip is flexed. Her calf is soft, nonte nder with a negative Homans. She has 0/5 function of her quadriceps, tibialis anterior, and gastroc soleus complex. X-RAYS: AP of the pelvis demonstrates a nondisplaced valgus impacted femoral neck fracture. CT OF THE PELVIS: Demonstrates a nondisplaced fracture of the femoral neck in valgus alignment. Th ere is minimal degenerative joint disease. No other fractures are seen. ASSESSMENT AND PLAN: An 82-year-old female with history of cerebrovascular accident and right lowe r extremity weakness who is a minimal ambulator, sustained a mechanical fall resulting in a right cl osed nondisplaced valgus impacted femoral neck fracture. PLAN: I discussed treatment options with her daughter. I discussed the risks associated with surge ry, which include but are not limited to infection, deep venous thrombosis, pulmonary embolism, clary ge to neurovascular structures, malunion, nonunion, need for revision surgery, heart attack, stroke and even . I explained to the daughter, given the fact that the patient is a minimal ambulato r with a previous cerebrovascular accident and right lower extremity weakness, the risks may outweig h the benefits. I explained to them that if they would like to proceed with surgery, the surgery wo uld include pinning of the right hip. After surgery, she would be partial weightbearing to allow th e hip to heal. Therefore, she would not be able to put full weight on the right hip post surgery. She would like to discuss with her sister. This was done with her nurse present as well as a M[place]-speaking slate roofer helper. All questions were answered to her satisfaction. She will continue to have SCDs while in bed. She will receive medications for pain control. She ca n work with physical therapy and will be partial weightbearing on the right lower extremity. Dictated By: TANYA BARON/ELSA Conf#: [id number] DID#: [id number]
[2017-03-01] MEDS ORDERED: KETOROLAC 15 MG INJ IV PRN (10:30)
--- NOTE | 2017-03-01 10:31 | RADRPT ---
PROCEDURE: Intraoperative imaging of the right hip with fluoroscopy. CLINICAL INDICATION: Right hip fracture Intraoperative. TECHNIQUE: 21 images of the right hip were obtained in the operating room with an image intensifie r. No radiologist was in attendance. 82 seconds of fluoroscopy time was used. COMPARISON: No prior study is available for comparison. FINDINGS: Intraoperative images with fixation of right hip subcapital femoral neck fracture. IMPRESSION: 1. Satisfactory intraoperative imaging of the right hip. Please see separately dictated operative note for full assessment.. RPTAT: UU .Alexander Gannon MD, MD Date Time Electronically viewed and signed by .Alexander Gannon MD, on 03/01/2017 10:31 .K/
--- NOTE | 2017-03-01 10:35 | RADRPT ---
PROCEDURE: XR Hip. CLINICAL INDICATION: Postop. TECHNIQUE: AP and frog lateral views of the right hip were performed. COMPARISON: None. FINDINGS: There are lag screws transfixing the intertrochanteric portion neck and head of the proximal right f emur. Bony elements appear anatomically aligned. The fracture to the surgical neck of the femur is stabilized of the screws. IMPRESSION: 1. Status post internal fixation of the fracture to the surgical neck of the proximal right femur. The fracture fragments are slightly impacted but otherwise anatomically aligned. RPTAT:AAJJ Physician Shruti Date Time Electronically viewed and signed by Physician Shruti on 03/01/2017 10:34 ANATOLY/
--- NOTE | 2017-03-01 11:10 | OPR ---
DATE OF OPERATION: 03/01/2017 SURGEON: Michael Rodriguez MD DEBT COLLECTOR: None. PREOPERATIVE DIAGNOSIS: Right closed valgus impacted subcapital femoral neck fracture. POSTOPERATIVE DIAGNOSIS: Right closed valgus impacted subcapital femoral neck fracture. PROCEDURE PERFORMED: 1. Right hip open reduction internal fixation with cannulated screws, CPT code 99948. 2. Intraoperative evaluation of right hip x-ray, 2 views. ANESTHESIA: Spinal. ESTIMATED BLOOD LOSS: 25 mL COMPLICATIONS: None. SPECIMEN: None. DISPOSITION: To PACU in stable condition. IMPLANTS USED: Synthes 7.3 mm cannulated screws, size 75 mm, 75 mm, and 85 mm. INDICATIONS FOR PROCEDURE: This is an 82-year-old female who sustained a mechanical fall and was br ought to [facility] on 02/22/2017. The orthopedic surgeon who was farm contractor buyer did not accept the case. The risks, benefits, and alternatives of surgical intervention were discussed wit h the patient and her family using a electrical instrument technician. Informed consent was obtained. The risks of surgery include but are not limited to infection, deep venous thrombosis, pulmonary emb olism, malunion, nonunion, need for revision surgery, need for total hip arthroplasty progression of arthritis, avascular necrosis, damage to neurovascular structures, heart attack, stroke, risks asso ciated with anesthesia, need for blood transfusion, and even . DETAILS OF PROCEDURE: The patient was met in the preoperative suite. The correct operative site wa s confirmed and marked. She was then brought into operating room. After induction of spinal anesth esia, she was placed in a supine position on the fracture table. The right lower extremity was prep ped and draped in the usual sterile fashion. Before starting, a timeout was taken to identify the c orrect operative side and confirmed that preoperative antibiotics consisting of 1 gram of IV Ancef w as administered. At this point, a 2 cm incision was made on the lateral aspect of the hip. The fas olivia was then incised. Using the fluoroscope, K-wire was placed above the lesser trochanter. The K- wire was then advanced on the inferior aspect of the femoral neck on the AP view. A lateral right h ip x-ray was taken to confirm that the K-wire was in the center-center position of the neck and head . Next, using the parallel guide, 2 additional K-wires were placed. The first K-wire was placed in the superior anterior position. Similarly, a third K-wire was placed in the superior posterior pos ition. It was confirmed with the use of a C-arm in both AP and lateral planes. Once all 3 K-wires were placed, they were then measured. A drill was then used to drill over the K-wires for the later al cortex. The appropriate size 7.3 mm Synthes cannulated screws with washer were then advanced ove r the K-wire. They were confirmed to be within the femoral head in both AP and lateral views. Once all screws were placed, the K-wires were removed. Images were taken and saved. The wound was then thoroughly irrigated. The fascia was closed using #1 Vicryl in interrupted [id number] fashion . The subcutaneous tissue was closed using a 2-0 Vicryl and the skin with 3-0 Monocryl in subcuticu lar fashion. Sterile dressing consisting of Xeroform, 4 x 4's, and ABDs was placed. There were no complications. The patient was awakened and taken to postoperative care unit in stable condition. All counts were correct. POSTOPERATIVE CARE: The patient will be partial weightbearing on the right lower extremity. She wi ll receive aspirin 325 mg p.o. b.i.d. for 6 weeks for DVT prophylaxis. While in the hospital, she w ill have bilateral SCDs. She will receive IV Ancef 1 gram q. 8 hours for 2 additional doses. She w ill receive multimodal pain management. Upon discharge, she will follow up in my office within 2 we eks postoperatively. Dictated By: MICHAEL BARON/ELSA Conf#: [id number] DID#: [id number]
--- NOTE | 2017-03-01 11:27 | PN ---
Date/Time of Note Date/Time of Note DATE: 03/01/17 TIME: 11:26 Assessment/Plan VTE Prophylaxis VTE Prophylaxis Intervention: anti-embolic stocking Lines/Catheters IV Catheter Type (from Nrs): Peripheral IV Urinary Cath still in place: No Assessment/Plan Problems: (1) Closed subcapital fracture of right femur Status: Acute Comment: In the OR being 10 now. The available to manage postoperatively. Qualifiers: Encounter type: initial encounter Qualified Code: S72.011A - Closed subcapital fracture of right femur, initial encounter (2) Hyperlipidemia Status: Chronic Comment: Noted on treat Qualifiers: Hyperlipidemia type: pure hypercholesterolemia Qualified Code: E78.00 - Pure hypercholesterolemia Subjective 24 Hr Interval Summary Free Text/Dictation Patient down in operating room receiving ORIF of the hip fracture now. Exam/Review of Systems Vital Signs Vitals Vital Signs Date Time Temp Pulse Resp B/P Pulse Ox O2 Delivery O2 Flow Rate FiO2 03/01/17 10:46 89 14 116/65 97 Nasal Cannula 2.0 03/01/17 09:55 98.7 Intake and Output 02/28/17 02/28/17 03/01/17 15:00 23:00 07:00 Intake Total 50 ml 2670 ml 650 ml Output Total 600 ml Balance 50 ml 2670 ml 50 ml Exam Immediately presurgical Respiratory: clear to auscultation, normal air movement Cardiovascular: nl pulses, regular rate and rhythm Results Result Diagram: 02/27/17 0430 02/27/17 0430 Results 24 hrs Laboratory Tests Test 02/28/17 15:15 Iron Level 43 Total Iron Binding Capacity 315 Percent Iron Saturation 14 L Ferritin 21.4 Medications Medications Current Medications Lorazepam (Ativan) 1 mg Q4 PRN IV ANXIETY Last administered on 02/21/17 22:02 ; Admin Dose 1 MG; Start 02/21/17 at 22:00 Atorvastatin Calcium (Lipitor) 20 mg QHS PO Last administered on 02/28/17 20:35 ; Admin Dose 20 MG; Start 02/22/17 at 21:00 Baclofen (Lioresal) 10 mg Q8 PRN PO MUSCLE SPASMS; Start 02/22/17 at 00:30 Gabapentin (Neurontin) 300 mg TID PO Last administered on 02/28/17 20:35; Admin Dose 300 MG; Start 02/22/17 at 09:00 Levetiracetam (Keppra) 500 mg BID PO Last administered on 02/28/17 20:35; Admin Dose 500 MG; Start 02/22/17 at 09:00 Morphine Sulfate (morphine) 3 mg Q4H PRN IV PAIN Last administered on 02/28/17 13:28; Admin Dose 3 MG; Start 02/22/17 at 00:30 Ondansetron HCl 4 mg 4 mg Q6H PRN IV NAUSEA AND/OR VOMITING; Start 02/22/17 at 00:30 Ceftriaxone Sodium/Sodium Chloride (Rocephin/NS) 50 ml @ 100 mls/hr Q24H IVPB Last administered on 02/28/17 11:44; Admin Dose 100 MLS/HR; Start 02/22/17 at 11 :30; Stop 03/01/17 at 11:29 Pantoprazole (Protonix Tab) 40 mg DAILY@06 PO Last administered on 02/28/17 06: 31; Admin Dose 40 MG; Start 02/23/17 at 06:00 Heparin Sodium (Porcine) 5000 unit 5,000 unit BID SC Last administered on 08:49; Admin Dose 5,000 UNIT; Start 02/22/17 at 21:00 Potassium Chloride/Sodium Chloride (KCl/1/2 NS) 1,005 ml @ 50 mls/hr Q20H6M IV Last administered on 02/28/17 20:35; Admin Dose 50 MLS/HR; Start 02/24/17 at 15 :00 Docusate Sodium (Colace) 100 mg DAILY PO Last administered on 02/28/17 08:45; Admin Dose 100 MG; Start 02/26/17 at 13:30 Metoprolol Succinate (Toprol Xl) 25 mg DAILY PO Last administered on 02/28/17 17:30; Admin Dose 25 MG; Start 02/28/17 at 15:00 Naloxone HCl (Narcan) 0.1 mg Q2M PRN IV FOR RESP RATE 8 OR LESS; Start 03/01/17 at 09:00; Stop 03/02/17 at 08:59 Hydromorphone HCl (Dilaudid) 1 mg Q3H PRN IV BREAKTHROUGH PAIN; Start 03/01/17 at 09:00; Stop 03/02/17 at 08:59 Hydromorphone HCl (Dilaudid) 0.2 mg Q3H PRN IV PAIN LEVEL 1-5; Start 03/01/17 at 09:00; Stop 03/02/17 at 08:59 Hydromorphone HCl (Dilaudid) 0.4 mg Q3H PRN IV PAIN LEVEL 6-10; Start 03/01/17 at 09:00; Stop 03/02/17 at 08:59 Diphenhydramine HCl (Benadryl) 25 mg Q6H PRN IV ITCHING; Start 03/01/17 at 09:00 ; Stop 03/02/17 at 08:59 Ondansetron HCl (Zofran Inj) 4 mg Q6H PRN IV NAUSEA AND/OR VOMITING; Start 03/01 at 09:00; Stop 03/02/17 at 08:59 Aspirin 325 mg 325 mg BID PO ; Start 03/01/17 at 11:00; Stop 04/11/17 at 21:01 Cefazolin Sodium (Ancef 1 Gm/50 ml (Pmx)) 50 ml @ 100 mls/hr Q8 IVPB ; Start at 14:00; Stop 03/01/17 at 22:29 Ketorolac Tromethamine (Toradol) 15 mg Q6H PRN IV PAIN; Start 03/01/17 at 10:30 ; Stop 03/04/17 at 10:29 Acetaminophen/ Hydrocodone Bitart ([place] (5/325)) 1 tab Q6H PRN PO PAIN; Start 03/01/17 at 11:00 Tramadol HCl 50 mg 50 mg Q8H PRN PO PAIN; Start 03/01/17 at 11:00 Ferric Sodium Gluconate Complex/ Sodium Chloride (Ferrlecit/NS) 110 ml @ 100 mls/hr ONCE ONCE IVPB ; Start 03/01/17 at 11:30; Stop 03/01/17 at 12:35; Status CARRIE WYLIE MD March 01, 2017 11:27
[2017-03-01] MEDS ORDERED: SOD FERRIC GLUC COMPLX 125 MG in SOD CHLORIDE 0.9% 100 ML IVPB ONE (13:00)
[2017-03-01] MEDS: LEVETIRACETAM 500 MG TAB PO SCH ×2 (14:58→21:05)
[2017-03-01] MEDS: ASPIRIN 325 MG TAB PO SCH ×2 (14:58→21:00)
[2017-03-01] MEDS: CEFAZOLIN 1 GM/50 ML (PMX) 50 ML IVPB SCH ×2 (14:58→21:11)
[2017-03-01] MEDS: POTASSIUM CHLORIDE 10 MEQ in SOD CHLORIDE 0.45% 1,000 ML IV SCH ×2 (15:36→23:42)
[2017-03-01] MEDS: ATORVASTATIN 20 MG TAB PO SCH (21:05)
[2017-03-02 00:20] VITALS: BP 102/54; PULSE 83; RESP 18
[2017-03-02 05:16] LABS: ADD SCAN DIFF NO
[2017-03-02 05:30] VITALS: BP 108/56; PULSE 75; RESP 18
[2017-03-02 05:37] LABS: BASOPHILS % 0.4 % (0.0-2.0); EOSINOPHILS # 0.3 10^3/ul (0.0-0.5); EOSINOPHILS % 3.1 % (0.0-7.0); HEMATOCRIT 28.6 % (37.0-47.0); HEMOGLOBIN 8.8 g/dl (12.0-16.0); LYMPHOCYTES # 2.5 10^3/ul (0.8-2.9); LYMPHOCYTES % 31.4 % (15.0-51.0); MEAN CORPUSCULAR HEMOGLOBIN 25.9 pg (29.0-33.0); MEAN CORPUSCULAR HGB CONC 30.8 g/dl (32.0-37.0); MEAN CORPUSCULAR VOLUME 84.1 fl (82.0-101.0); MEAN PLATELET VOLUME 9.4 fl (7.4-10.4); MONOCYTE # 0.6 10^3/ul (0.3-0.9); NEUTROPHIL # 4.7 10^3/ul (1.6-7.5); NEUTROPHILS % 57.9 % (39.0-77.0); PLATELET COUNT 234 10^3/UL (140-415); RED CELL DISTRIBUTION WIDTH 15.4 % (11.5-14.5); WHITE BLOOD COUNT 8.1 10^3/ul (4.8-10.8)
[2017-03-02 05:42] LABS: ALBUMIN 3.1 g/dl (3.3-4.9); POTASSIUM 3.8 mmol/L (3.5-5.1)
[2017-03-02 05:44] LABS: ALBUMIN/GLOBULIN RATIO 0.81; BILIRUBIN,INDIRECT 0.3 mg/dl (0-1.1); BILIRUBIN,TOTAL 0.3 mg/dl (0.2-1.3); CREATININE 0.58 mg/dl (0.44-1.00); TOTAL PROTEIN 6.9 g/dl (6.1-8.1)
[2017-03-02 05:45] LABS: CALCIUM 8.3 mg/dl (8.4-10.2)
[2017-03-02] MEDS: PANTOPRAZOLE (EC) 40 MG TAB PO SCH (06:13)
[2017-03-02] MEDS: LEVOTHYROXINE 25 MCG TAB PO SCH (06:13)
--- NOTE | 2017-03-02 08:32 | PN ---
Date/Time of Note Date/Time of Note DATE: 03/02/17 TIME: 08:30 Assessment/Plan VTE Prophylaxis VTE Prophylaxis Intervention: ambulation Lines/Catheters IV Catheter Type (from Nrsg): Peripheral IV Urinary Cath still in place: No Subjective 24 Hr Interval Summary Free Text/Dictation Anesthesia Note: A 82 year female s/p ORIF hip under GA and Spinal,pod#1 doing fine, pain is controlled, no N/V, headache, itching, back pain or irritation, inflammation. V/ S stable. Exam/Review of Systems Vital Signs Vitals Vital Signs Date Time Temp Pulse Resp B/P Pulse Ox O2 Delivery O2 Flow Rate FiO2 03/02/17 05:30 99.5 75 18 108/56 96 Nasal Cannula 2.0 Intake and Output 03/01/17 03/01/17 03/02/17 15:00 23:00 07:00 Intake Total 1110 ml 900 ml 1140 ml Output Total 25 ml Balance 1085 ml 900 ml 1140 ml Results Result Diagram: 03/02/17 0420 03/02/17 0420 Results 24 hrs Laboratory Tests Test 03/02/17 04:20 White Blood Count 8.1 Red Blood Count 3.40 L Hemoglobin 8.8 L Hematocrit 28.6 L Mean Corpuscular Volume 84.1 Mean Corpuscular Hemoglobin 25.9 L Mean Corpuscular Hemoglobin Concent 30.8 L Red Cell Distribution Width 15.4 H Platelet Count 234 Mean Platelet Volume 9.4 Neutrophils % 57.9 Lymphocytes % 31.4 Monocytes % 7.0 Eosinophils % 3.1 Basophils % 0.4 Nucleated Red Blood Cells % 0.0 Neutrophils # 4.7 Lymphocytes # 2.5 Monocytes # 0.6 Eosinophils # 0.3 Basophils # 0.0 Nucleated Red Blood Cells # 0.0 Sodium Level 135 Potassium Level 3.8 Chloride Level 99 Carbon Dioxide Level 26 Anion Gap 14 Blood Urea Nitrogen 11 Creatinine 0.58 Glucose Level 98 Calcium Level 8.3 L Total Bilirubin 0.3 Direct Bilirubin 0.00 Indirect Bilirubin 0.3 Aspartate Amino Transf (AST/SGOT) 38 Alanine Aminotransferase (ALT/SGPT) 29 Alkaline Phosphatase 99 Total Protein 6.9 Albumin 3.1 L Globulin 3.80 H Albumin/Globulin Ratio 0.81 Medications Medications Current Medications Lorazepam (Ativan) 1 mg Q4 PRN IV ANXIETY Last administered on 02/21/17 22:02 ; Admin Dose 1 MG; Start 02/21/17 at 22:00 Atorvastatin Calcium (Lipitor) 20 mg QHS PO Last administered on 03/01/17 21:05 ; Admin Dose 20 MG; Start 02/22/17 at 21:00 Baclofen (Lioresal) 10 mg Q8 PRN PO MUSCLE SPASMS; Start 02/22/17 at 00:30 Gabapentin (Neurontin) 300 mg TID PO Last administered on 03/01/17 21:05; Admin Dose 300 MG; Start 02/22/17 at 09:00 Levetiracetam (Keppra) 500 mg BID PO Last administered on 03/01/17 21:05; Admin Dose 500 MG; Start 02/22/17 at 09:00 Morphine Sulfate (morphine) 3 mg Q4H PRN IV PAIN Last administered on 02/28/17 13:28; Admin Dose 3 MG; Start 02/22/17 at 00:30 Ondansetron HCl (Zofran Inj) 4 mg Q6H PRN IV NAUSEA AND/OR VOMITING Last administered on 03/01/17 13:04; Admin Dose 4 MG; Start 02/22/17 at 00:30 Pantoprazole (Protonix Tab) 40 mg DAILY@06 PO Last administered on 03/02/17 06: 13; Admin Dose 40 MG; Start 02/23/17 at 06:00 Heparin Sodium (Porcine) 5000 unit 5,000 unit BID SC Last administered on 21:08; Admin Dose 5,000 UNIT; Start 02/22/17 at 21:00 Potassium Chloride/Sodium Chloride (KCl/1/2 NS) 1,005 ml @ 50 mls/hr Q20H6M IV Last administered on 03/01/17 23:42; Admin Dose 50 MLS/HR; Start 02/24/17 at 15 :00 Docusate Sodium (Colace) 100 mg DAILY PO Last administered on 02/28/17 08:45; Admin Dose 100 MG; Start 02/26/17 at 13:30 Metoprolol Succinate (Toprol Xl) 25 mg DAILY PO Last administered on 02/28/17 17:30; Admin Dose 25 MG; Start 02/28/17 at 15:00 Naloxone HCl (Narcan) 0.1 mg Q2M PRN IV FOR RESP RATE 8 OR LESS; Start 03/01/17 at 09:00; Stop 03/02/17 at 08:59 Hydromorphone HCl (Dilaudid) 1 mg Q3H PRN IV BREAKTHROUGH PAIN; Start 03/01/17 at 09:00; Stop 03/02/17 at 08:59 Hydromorphone HCl (Dilaudid) 0.2 mg Q3H PRN IV PAIN LEVEL 1-5; Start 03/01/17 at 09:00; Stop 03/02/17 at 08:59 Hydromorphone HCl (Dilaudid) 0.4 mg Q3H PRN IV PAIN LEVEL 6-10; Start 03/01/17 at 09:00; Stop 03/02/17 at 08:59 Diphenhydramine HCl (Benadryl) 25 mg Q6H PRN IV ITCHING; Start 03/01/17 at 09:00 ; Stop 03/02/17 at 08:59 Ondansetron HCl (Zofran Inj) 4 mg Q6H PRN IV NAUSEA AND/OR VOMITING; Start 03/01 at 09:00; Stop 03/02/17 at 08:59 Aspirin (Aspirin) 325 mg BID PO Last administered on 03/01/17t 14:58; Admin Dose 325 MG; Start 03/01/17 at 11:00; Stop 04/11/17 at 21:01 Ketorolac Tromethamine (Toradol) 15 mg Q6H PRN IV PAIN; Start 03/01/17 at 10:30 ; Stop 03/04/17 at 10:29 Acetaminophen/ Hydrocodone Bitart ([place] (5/325)) 1 tab Q6H PRN PO PAIN; Start 03/01/17 at 11:00 Tramadol HCl (Ultram) 50 mg Q8H PRN PO PAIN; Start 03/01/17 at 11:00 FIOR CONTRERAS MD March 02, 2017 08:32
[2017-03-02 08:44] VITALS: BP 107/59; RESP 18
--- NOTE | 2017-03-02 08:57 | PN ---
DATE: 02/27/2017 CARDIOLOGY FOLLOWUP SUBJECTIVE: Discussed with the staff. Rhythm strip was reviewed. No new cardiac event. The patie nt with no chest pain or pressure. He still has hip pain. MEDICATIONS: Reviewed. PHYSICAL EXAMINATION: VITAL SIGNS: Temperature 99, heart rate of 84, blood pressure /55, respiration rate of 19. HEENT: Normocephalic, atraumatic. No acute distress. CARDIOVASCULAR: Regular rate and rhythm. PULMONARY: With no wheezes. GASTROINTESTINAL: Soft, nontender. EXTREMITIES: No extremity edema, status post surgery. NEUROLOGIC: Awake and alert. Responds appropriately. PSYCHIATRIC: Appears to be calm. LABORATORY: WBC of 9.9, hemoglobin 10.9, platelets of 280. Sodium 132, potassium 4, BUN of 40, cre atinine 0.7, glucose 111. ASSESSMENT AND PLAN: 1. Cardiovascular . 2. History of hip fracture, status post surgery. 3. History of cerebrovascular accident. 4. History of hypertension, under good control. 5. History of pulmonary hypertension, currently stable. 6. Anemia, stable. 7. History of thyroid disorder, on Synthroid. RECOMMENDATIONS: We will continue with the current cardiac care. Postop care as per internal medic ine. DVT prophylaxis as per internal medicine and ortho's recommendation. We will follow up p.r.n. Dictated By: GABRIEL WILSON MD AV/ELSA Conf#: [id number] DID#: [id number] CC: JORGE ALBERTO MORRIS MD;*EndCC*
[2017-03-02] MEDS: METOPROLOL (XL) 25 MG TAB PO SCH (09:00)
[2017-03-02] MEDS: GABAPENTIN 300 MG CAP PO SCH ×3 (09:07→21:22)
[2017-03-02] MEDS: LEVETIRACETAM 500 MG TAB PO SCH ×2 (09:07→21:22)
[2017-03-02] MEDS: DOCUSATE SODIUM 100 MG CAP PO SCH (09:07)
[2017-03-02] MEDS: ASPIRIN 325 MG TAB PO SCH ×2 (09:07→21:22)
[2017-03-02] MEDS: HYDROCODONE/APAP (5/325) TAB PO PRN ×2 (09:08→18:32)
[2017-03-02] MEDS: HEPARIN 5,000 UNIT/0.5 ML VIAL SC SCH ×2 (09:11→21:25)
[2017-03-02] MEDS: traMADol 50 MG TAB PO PRN (12:59)
--- NOTE | 2017-03-02 14:30 | PN ---
Date/Time of Note Date/Time of Note DATE: 03/02/17 TIME: 14:29 Assessment/Plan VTE Prophylaxis VTE Prophylaxis Intervention: other Lines/Catheters IV Catheter Type (from Nrs): Peripheral IV Urinary Cath still in place: No Assessment/Plan Chief Complaint/Hosp Course (1) Closed subcapital fracture of right femur status post surgical repair -PT eval, patient may need SNF if having difficulty ambulating will follow up on PT recommendations (2) Hyperlipidemia -Continue Lipitor Prophylaxis: Aspirin Problems: Subjective 24 Hr Interval Summary Constitutional: no complaints Exam/Review of Systems Vital Signs Vitals Vital Signs Date Time Temp Pulse Resp B/P Pulse Ox O2 Delivery O2 Flow Rate FiO2 03/02/17 08:44 98.8 76 18 107/59 99 03/02/17 08:30 Nasal Cannula 2.0 Intake and Output 03/01/17 03/01/17 03/02/17 15:00 23:00 07:00 Intake Total 1110 ml 900 ml 1140 ml Output Total 25 ml Balance 1085 ml 900 ml 1140 ml Exam Constitutional: alert Respiratory: clear to auscultation Cardiovascular: regular rate and rhythm Gastrointestinal: soft, No distended Musculoskeletal: nl extremities to inspection Results Result Diagram: 03/02/17 0420 03/02/17 0420 Results 24 hrs Laboratory Tests Test 03/02/17 04:20 White Blood Count 8.1 Red Blood Count 3.40 L Hemoglobin 8.8 L Hematocrit 28.6 L Mean Corpuscular Volume 84.1 Mean Corpuscular Hemoglobin 25.9 L Mean Corpuscular Hemoglobin Concent 30.8 L Red Cell Distribution Width 15.4 H Platelet Count 234 Mean Platelet Volume 9.4 Neutrophils % 57.9 Lymphocytes % 31.4 Monocytes % 7.0 Eosinophils % 3.1 Basophils % 0.4 Nucleated Red Blood Cells % 0.0 Neutrophils # 4.7 Lymphocytes # 2.5 Monocytes # 0.6 Eosinophils # 0.3 Basophils # 0.0 Nucleated Red Blood Cells # 0.0 Sodium Level 135 Potassium Level 3.8 Chloride Level 99 Carbon Dioxide Level 26 Anion Gap 14 Blood Urea Nitrogen 11 Creatinine 0.58 Glucose Level 98 Calcium Level 8.3 L Total Bilirubin 0.3 Direct Bilirubin 0.00 Indirect Bilirubin 0.3 Aspartate Amino Transf (AST/SGOT) 38 Alanine Aminotransferase (ALT/SGPT) 29 Alkaline Phosphatase 99 Total Protein 6.9 Albumin 3.1 L Globulin 3.80 H Albumin/Globulin Ratio 0.81 Medications Medications Current Medications Lorazepam (Ativan) 1 mg Q4 PRN IV ANXIETY Last administered on 02/21/17 22:02 ; Admin Dose 1 MG; Start 02/21/17 at 22:00 Atorvastatin Calcium (Lipitor) 20 mg QHS PO Last administered on 03/01/17 21:05 ; Admin Dose 20 MG; Start 02/22/17 at 21:00 Baclofen (Lioresal) 10 mg Q8 PRN PO MUSCLE SPASMS; Start 02/22/17 at 00:30 Gabapentin (Neurontin) 300 mg TID PO Last administered on 03/02/17 12:54; Admin Dose 300 MG; Start 02/22/17 at 09:00 Levetiracetam (Keppra) 500 mg BID PO Last administered on 03/02/17 09:07; Admin Dose 500 MG; Start 02/22/17 at 09:00 Morphine Sulfate (morphine) 3 mg Q4H PRN IV PAIN Last administered on 02/28/17 13:28; Admin Dose 3 MG; Start 02/22/17 at 00:30 Ondansetron HCl (Zofran Inj) 4 mg Q6H PRN IV NAUSEA AND/OR VOMITING Last administered on 03/01/17 13:04; Admin Dose 4 MG; Start 02/22/17 at 00:30 Pantoprazole (Protonix Tab) 40 mg DAILY@06 PO Last administered on 03/02/17 06: 13; Admin Dose 40 MG; Start 02/23/17 at 06:00 Heparin Sodium (Porcine) 5000 unit 5,000 unit BID SC Last administered on 09:11; Admin Dose 5,000 UNIT; Start 02/22/17 at 21:00 Potassium Chloride/Sodium Chloride (KCl/1/2 NS) 1,005 ml @ 50 mls/hr Q20H6M IV Last administered on 03/01/17 23:42; Admin Dose 50 MLS/HR; Start 02/24/17 at 15 :00 Docusate Sodium (Colace) 100 mg DAILY PO Last administered on 03/02/17 09:07; Admin Dose 100 MG; Start 02/26/17 at 13:30 Metoprolol Succinate (Toprol Xl) 25 mg DAILY PO Last administered on 02/28/17 17:30; Admin Dose 25 MG; Start 02/28/17 at 15:00 Aspirin (Aspirin) 325 mg BID PO Last administered on 03/02/17 09:07; Admin Dose 325 MG; Start 03/01/17 at 11:00; Stop 04/11/17 at 21:01 Ketorolac Tromethamine (Toradol) 15 mg Q6H PRN IV PAIN; Start 03/01/17 at 10:30 ; Stop 03/04/17 at 10:29 Acetaminophen/ Hydrocodone Bitart ([place] (5/325)) 1 tab Q6H PRN PO PAIN Last administered on 03/02/17 09:08; Admin Dose 1 TAB; Start 03/01/17 at 11:00 Tramadol HCl (Ultram) 50 mg Q8H PRN PO PAIN Last administered on 03/02/17 12:59 ; Admin Dose 50 MG; Start 03/01/17 at 11:00 MOSHE MARTIN March 02, 2017 14:30
[2017-03-02 20:42] VITALS: BP 109/53; RESP 20
[2017-03-02] MEDS: POTASSIUM CHLORIDE 10 MEQ in SOD CHLORIDE 0.45% 1,000 ML IV SCH (21:21)
[2017-03-02] MEDS: ATORVASTATIN 20 MG TAB PO SCH (21:22)
--- NOTE | 2017-03-02 22:11 | PN ---
DATE: 03/02/2017 SUBJECTIVE: Discussed with the staff. The patient's pain has significantly improved. Denies any c hest pain or pressure. Hip pain is improving now. No palpitation. MEDICATIONS: Reviewed as per medication reconciliation sheet, personally reviewed. PHYSICAL EXAMINATION: VITAL SIGNS: Temperature 98.8, T-max is 99.5. Heart rate of 76, blood pressure 107/59, respiratory rate of 18. HEENT: Normocephalic, atraumatic. Pupils are equal. CARDIOVASCULAR: Regular rate and rhythm. PULMONARY: No wheezes. GASTROINTESTINAL: Soft, nontender. EXTREMITIES: Trivial edema. NEUROLOGIC: Awake, responds appropriately. PSYCHIATRIC: Appeared to be calm. LABORATORY: WBC of 8.1, hemoglobin 8.8, platelets of 234. Sodium 135, potassium 3.8, BUN of 11, cr eatinine 0.58, glucose of 98. ASSESSMENT AND PLAN: 1. Hip fracture, status post surgery. 2. Dyslipidemia. 3. History of cerebrovascular accident. 4. History of hypertension. 5. Mild pulmonary hypertension. 6. Thyroid disorder. RECOMMENDATIONS: Will continue with the current cardiac care. DVT prophylaxis has been ____ jun starry on aspirin. Physical therapy and rehab will be continued. Dictated By: GABRIEL WILSON MD AV/ELSA Conf#: [id number] DID#: [id number] CC: MOSHE MARTIN MD;*[facility]*
[2017-03-03 05:21] LABS: ADD SCAN DIFF NO
[2017-03-03 05:28] LABS: BASOPHILS % 0.2 % (0.0-2.0); EOSINOPHILS # 0.4 10^3/ul (0.0-0.5); EOSINOPHILS % 4.4 % (0.0-7.0); HEMATOCRIT 26.9 % (37.0-47.0); HEMOGLOBIN 8.3 g/dl (12.0-16.0); LYMPHOCYTES # 2.6 10^3/ul (0.8-2.9); MEAN CORPUSCULAR HEMOGLOBIN 25.9 pg (29.0-33.0); MEAN CORPUSCULAR HGB CONC 30.9 g/dl (32.0-37.0); MEAN CORPUSCULAR VOLUME 84.1 fl (82.0-101.0); MEAN PLATELET VOLUME 9.4 fl (7.4-10.4); MONOCYTE # 0.6 10^3/ul (0.3-0.9); MONOCYTES % 7.5 % (0.0-11.0); NEUTROPHIL # 4.7 10^3/ul (1.6-7.5); NEUTROPHILS % 56.7 % (39.0-77.0); PLATELET COUNT 240 10^3/UL (140-415); RED CELL DISTRIBUTION WIDTH 15.5 % (11.5-14.5); WHITE BLOOD COUNT 8.3 10^3/ul (4.8-10.8)
[2017-03-03 05:36] LABS: POTASSIUM 3.6 mmol/L (3.5-5.1)
[2017-03-03 05:39] LABS: CREATININE 0.62 mg/dl (0.44-1.00)
[2017-03-03 05:40] LABS: CALCIUM 8.1 mg/dl (8.4-10.2)
[2017-03-03] MEDS: PANTOPRAZOLE (EC) 40 MG TAB PO SCH (06:05)
[2017-03-03] MEDS: LEVOTHYROXINE 25 MCG TAB PO SCH (06:05)
[2017-03-03 07:43] VITALS: BP 108/52; RESP 18
[2017-03-03] MEDS: morphine 4 MG/ML VIAL IV PRN ×2 (08:19→14:28)
[2017-03-03] MEDS: METOPROLOL (XL) 25 MG TAB PO SCH (09:00)
[2017-03-03] MEDS: LEVETIRACETAM 500 MG TAB PO SCH ×2 (09:45→20:43)
[2017-03-03] MEDS: GABAPENTIN 300 MG CAP PO SCH ×3 (09:45→20:43)
[2017-03-03] MEDS: ASPIRIN 325 MG TAB PO SCH ×2 (09:45→20:43)
[2017-03-03] MEDS: DOCUSATE SODIUM 100 MG CAP PO SCH (09:45)
[2017-03-03] MEDS: HEPARIN 5,000 UNIT/0.5 ML VIAL SC SCH ×2 (09:47→20:46)
--- NOTE | 2017-03-03 13:18 | PN ---
DATE: 03/03/2017 CARDIOLOGY FOLLOWUP PROGRESS NOTE SUBJECTIVE: Discussed with the staff and the family member at the bedside. The patient with no manny st pain or pressure. No palpitation, no shortness of breath. Still has hip pain, but is improved i n pain. MEDICATIONS: Reviewed. PHYSICAL EXAMINATION: VITAL SIGNS: Temperature 98.5, heart rate of 79, blood pressure 108/52, respiration rate of 18. HEENT: Normocephalic, atraumatic. Elderly female. Pupils are equal. CARDIOVASCULAR: Regular rate and rhythm now. Systolic murmur. PULMONARY: With no wheezes or rhonchi. GASTROINTESTINAL: Soft, nontender. EXTREMITIES: Status post surgery, otherwise no significant edema on lower extremities. NEUROLOGIC: Awake and alert. Responds appropriately. PSYCHIATRIC: Appears to be calm and pleasant. LABORATORY: WBC of 8.3, hemoglobin 8.2, platelets 240. Sodium 138, potassium 3.6, BUN of 9, creati nine 0.62, glucose of 94. ASSESSMENT AND PLAN: 1. Hip fracture status post surgery. 2. History of cerebrovascular accident. 3. Hypertension. 4. Dyslipidemia. 5. Thyroid disorder. RECOMMENDATIONS: We will continue with the current cardiac care. Postop care and DVT prophylaxis a s per ortho will be continued. Discharge planning in process. Dictated By: GABRIEL WILSON MD AV/ELSA Conf#: [id number] DID#: [id number] CC: MOSHE MARTIN MD;*End*
--- NOTE | 2017-03-03 15:06 | PN ---
Date/Time of Note Date/Time of Note DATE: 03/03/17 TIME: 15:04 Assessment/Plan VTE Prophylaxis VTE Prophylaxis Intervention: other Lines/Catheters IV C[facility]ter Type (from [facility]): Peripheral IV Urinary Cath still in place: No Assessment/Plan Chief Complaint/Hosp Course (1) Closed subcapital fracture of right femur status post surgical repair -PT eval, patient's daughter does not want to send patient to custodial and prefers taking patient home, patient will need home health with PT when discharged (2) Hyperlipidemia -Continue Lipitor Prophylaxis: Aspirin Problems: Subjective 24 Hr Interval Summary Constitutional: no complaints Exam/Review of Systems Vital Signs Vitals Vital Signs Date Time Temp Pulse Resp B/P Pulse Ox O2 Delivery O2 Flow Rate FiO2 03/03/17 08:00 Nasal Cannula 2.0 03/03/17 07:43 98.5 79 18 108/52 99 Intake and Output 03/02/17 03/02/17 03/03/17 15:00 23:00 07:00 Intake Total 1835 ml 860 ml Balance 1835 ml 860 ml Exam Constitutional: alert Respiratory: clear to auscultation Cardiovascular: regular rate and rhythm Gastrointestinal: soft, No distended Musculoskeletal: nl extremities to inspection Results Result Diagram: 03/03/17 0440 03/03/17 0440 Results 24 hrs Laboratory Tests Test 03/03/17 04:40 White Blood Count 8.3 Red Blood Count 3.20 L Hemoglobin 8.3 L Hematocrit 26.9 L Mean Corpuscular Volume 84.1 Mean Corpuscular Hemoglobin 25.9 L Mean Corpuscular Hemoglobin Concent 30.9 L Red Cell Distribution Width 15.5 H Platelet Count 240 Mean Platelet Volume 9.4 Neutrophils % 56.7 Lymphocytes % 31.0 Monocytes % 7.5 Eosinophils % 4.4 Basophils % 0.2 Nucleated Red Blood Cells % 0.0 Neutrophils # 4.7 Lymphocytes # 2.6 Monocytes # 0.6 Eosinophils # 0.4 Basophils # 0.0 Nucleated Red Blood Cells # 0.0 Sodium Level 138 Potassium Level 3.6 Chloride Level 103 Carbon Dioxide Level 27 Anion Gap 12 Blood Urea Nitrogen 9 Creatinine 0.62 Glucose Level 94 Calcium Level 8.1 L Medications Medications Current Medications Lorazepam (Ativan) 1 mg Q4 PRN IV ANXIETY Last administered on 02/21/17t 22:02 ; Admin Dose 1 MG; Start 02/21/17 at 22:00 Atorvastatin Calcium (Lipitor) 20 mg QHS PO Last administered on 03/02/17 21:22 ; Admin Dose 20 MG; Start 02/22/17 at 21:00 Baclofen (Lioresal) 10 mg Q8 PRN PO MUSCLE SPASMS; Start 02/22/17 at 00:30 Gabapentin (Neurontin) 300 mg TID PO Last administered on 03/03/17 14:28; Admin Dose 300 MG; Start 02/22/17 at 09:00 Levetiracetam (Keppra) 500 mg BID PO Last administered on 03/03/17 09:45; Admin Dose 500 MG; Start 02/22/17 at 09:00 Morphine Sulfate (morphine) 3 mg Q4H PRN IV PAIN Last administered on 03/03/17 14:28; Admin Dose 3 MG; Start 02/22/17 at 00:30 Ondansetron HCl (Zofran Inj) 4 mg Q6H PRN IV NAUSEA AND/OR VOMITING Last administered on 03/01/17 13:04; Admin Dose 4 MG; Start 02/22/17 at 00:30 Pantoprazole (Protonix Tab) 40 mg DAILY@06 PO Last administered on 03/03/17 06: 05; Admin Dose 40 MG; Start 02/23/17 at 06:00 Heparin Sodium (Porcine) 5000 unit 5,000 unit BID SC Last administered on 09:47; Admin Dose 5,000 UNIT; Start 02/22/17 at 21:00 Potassium Chloride/Sodium Chloride (KCl/1/2 NS) 1,005 ml @ 50 mls/hr Q20H6M IV Last administered on 03/02/17 21:21; Admin Dose 50 MLS/HR; Start 02/24/17 at 15 :00 Docusate Sodium (Colace) 100 mg DAILY PO Last administered on 03/03/17 09:45; Admin Dose 100 MG; Start 02/26/17 at 13:30 Metoprolol Succinate (Toprol Xl) 25 mg DAILY PO Last administered on 02/28/17 17:30; Admin Dose 25 MG; Start 02/28/17 at 15:00 Aspirin (Aspirin) 325 mg BID PO Last administered on 03/03/17 09:45; Admin Dose 325 MG; Start 03/01/17 at 11:00; Stop 04/11/17 at 21:01 Ketorolac Tromethamine (Toradol) 15 mg Q6H PRN IV PAIN; Start 03/01/17 at 10:30 ; Stop 03/04/17 at 10:29 Acetaminophen/ Hydrocodone Bitart ([place] (5/325)) 1 tab Q6H PRN PO PAIN Last administered on 03/02/17 18:32; Admin Dose 1 TAB; Start 03/01/17 at 11:00 Tramadol HCl (Ultram) 50 mg Q8H PRN PO PAIN Last administered on 03/02/17 12:59 ; Admin Dose 50 MG; Start 03/01/17 at 11:00 MOSHE MARTIN March 03, 2017 15:06
[2017-03-03] MEDS: POTASSIUM CHLORIDE 10 MEQ in SOD CHLORIDE 0.45% 1,000 ML IV SCH (18:53)
[2017-03-03] MEDS: traMADol 50 MG TAB PO PRN (18:55)
[2017-03-03 19:38] VITALS: BP 111/55; RESP 18
[2017-03-03] MEDS: ATORVASTATIN 20 MG TAB PO SCH (20:43)
[2017-03-04] MEDS: PANTOPRAZOLE (EC) 40 MG TAB PO SCH (06:20)
[2017-03-04] MEDS: LEVOTHYROXINE 25 MCG TAB PO SCH (06:20)
[2017-03-04 07:37] VITALS: BP 108/54; RESP 18
[2017-03-04] MEDS: LEVETIRACETAM 500 MG TAB PO SCH ×2 (08:29→20:48)
[2017-03-04] MEDS: ASPIRIN 325 MG TAB PO SCH ×2 (08:29→20:48)
[2017-03-04] MEDS: GABAPENTIN 300 MG CAP PO SCH ×3 (08:30→20:48)
[2017-03-04] MEDS: DOCUSATE SODIUM 100 MG CAP PO SCH (08:30)
[2017-03-04] MEDS: HEPARIN 5,000 UNIT/0.5 ML VIAL SC SCH ×2 (08:33→20:51)
[2017-03-04] MEDS: METOPROLOL (XL) 25 MG TAB PO SCH (08:33)
--- NOTE | 2017-03-04 09:59 | PN ---
DATE: 03/04/2017 CARDIOLOGY FOLLOWUP SUBJECTIVE: Discussed with the staff. Rhythm strip was reviewed. Discussed with the staff. Discu ssed with the patient's daughter. The patient with no chest pain or pressure. Hip pain has improve d. No palpitation. MEDICATIONS: Reviewed. PHYSICAL EXAMINATION: VITAL SIGNS: Temperature 97.7, heart rate of 63, blood pressure 108/54, respiration rate of 18, sat urating 99%. HEENT: Normocephalic, atraumatic. Elderly female in no acute distress. Eyes: Pupils equal and ro und. CARDIOVASCULAR: Regular rate and rhythm, systolic murmur. PULMONARY: With no wheezes and rhonchi. GASTROINTESTINAL: Soft, nontender. EXTREMITIES: Status post surgery. NEUROLOGIC: Awake, responds appropriately. PSYCHIATRIC: Appears to be calm and pleasant. ASSESSMENT AND PLAN: 1. Hip fracture status post surgery. 2. History of cerebrovascular accident, currently stable. 3. Hypertension, under good control. 4. Diabetes, under control. 5. Dyslipidemia. 6. History of thyroid disorder. RECOMMENDATIONS: We will continue with the current cardiac care. DVT prophylaxis is being done by aspirin per ortho recommendation. Statin will be continued. Thyroid supplement will be continued a s well. Discharge planning to rehabilitation is in process. Continue postop care. Dictated By: GABRIEL WILSON MD AV/ELSA Conf#: [id number] DID#: [id number] CC: MOSHE MARTIN MD;*EndCC*
--- NOTE | 2017-03-04 16:54 | PN ---
Date/Time of Note Date/Time of Note DATE: 03/04/17 TIME: 16:51 Assessment/Plan VTE Prophylaxis VTE Prophylaxis Intervention: other Lines/Catheters [facility]ter Type [facility]from [facility]): Peripheral IV Urinary Cath still in place: No Assessment/Plan Chief Complaint/Hosp Course (1) Closed subcapital fracture of right femur status post surgical repair -PT eval, patient's daughter does not want to send patient to care home and prefers taking patient home, patient will need home health with PT when discharged -Patients Medi-Bhavin is pending, once Medi-Bhavin is obtained then home health can be provided and patient will be discharged home (2) Hyperlipidemia -Continue Lipitor (3) Anemia secondary to chronic disease and possible acute blood loss anemia from surgery -Monitor Prophylaxis: Aspirin Problems: Subjective 24 Hr Interval Summary Musculoskeletal: bone/joint pain Exam/Review of Systems Vital Signs Vitals Vital Signs Date Time Temp Pulse Resp B/P Pulse Ox O2 Delivery O2 Flow Rate FiO2 03/04/17 08:30 Nasal Cannula 2.0 03/04/17 07:37 97.7 63 18 108/54 99 Intake and Output 03/03/17 03/03/17 03/04/17 15:00 23:00 07:00 Intake Total 1505 ml 1560 ml Balance 1505 ml 1560 ml Exam Constitutional: alert Respiratory: clear to auscultation Cardiovascular: regular rate and rhythm Gastrointestinal: soft, No distended Musculoskeletal: nl extremities to inspection Results Result Diagram: 03/03/1743903/03/17439 Medications Medications Current Medications Lorazepam (Ativan) 1 mg Q4 PRN IV ANXIETY Last administered on 02/21/17 22:02 ; Admin Dose 1 MG; Start 02/21/17 at 22:00 Atorvastatin Calcium (Lipitor) 20 mg QHS PO Last administered on 03/03/17 20:43 ; Admin Dose 20 MG; Start 02/22/17 at 21:00 Baclofen (Lioresal) 10 mg Q8 PRN PO MUSCLE SPASMS; Start 02/22/17 at 00:30 Gabapentin (Neurontin) 300 mg TID PO Last administered on 03/04/17 13:13; Admin Dose 300 MG; Start 02/22/17 at 09:00 Levetiracetam (Keppra) 500 mg BID PO Last administered on 03/04/17 08:29; Admin Dose 500 MG; Start 02/22/17 at 09:00 Morphine Sulfate (morphine) 3 mg Q4H PRN IV PAIN Last administered on 03/03/17 14:28; Admin Dose 3 MG; Start 02/22/17 at 00:30 Ondansetron HCl (Zofran Inj) 4 mg Q6H PRN IV NAUSEA AND/OR VOMITING Last administered on 03/01/17 13:04; Admin Dose 4 MG; Start 02/22/17 at 00:30 Pantoprazole (Protonix Tab) 40 mg DAILY@06 PO Last administered on 03/04/17 06 :20; Admin Dose 40 MG; Start 02/23/17 at 06:00 Heparin Sodium (Porcine) 5000 unit 5,000 unit BID SC Last administered on 08:33; Admin Dose 5,000 UNIT; Start 02/22/17 at 21:00 Potassium Chloride/Sodium Chloride (KCl/1/2 NS) 1,005 ml @ 50 mls/hr Q20H6M IV Last administered on 03/03/17 18:53; Admin Dose 50 MLS/HR; Start 02/24/17 at 15 :00 Docusate Sodium (Colace) 100 mg DAILY PO Last administered on 03/04/17 08:30; Admin Dose 100 MG; Start 02/26/17 at 13:30 Metoprolol Succinate (Toprol Xl) 25 mg DAILY PO Last administered on 02/28/17 17:30; Admin Dose 25 MG; Start 02/28/17 at 15:00 Aspirin (Aspirin) 325 mg BID PO Last administered on 03/04/17 08:29; Admin Dose 325 MG; Start 03/01/17 at 11:00; Stop 04/11/17 at 21:01 Acetaminophen/ Hydrocodone Bitart ([place] (5/325)) 1 tab Q6H PRN PO PAIN Last administered on 03/02/17 18:32; Admin Dose 1 TAB; Start 03/01/17 at 11:00 Tramadol HCl (Ultram) 50 mg Q8H PRN PO PAIN Last administered on 03/03/17 18:55 ; Admin Dose 50 MG; Start 03/01/17 at 11:00 MOSHE MARTIN March 04, 2017 16:54
[2017-03-04] MEDS: POTASSIUM CHLORIDE 10 MEQ in SOD CHLORIDE 0.45% 1,000 ML IV SCH (18:13)
[2017-03-04] MEDS: HYDROCODONE/APAP (5/325) TAB PO PRN (18:16)
[2017-03-04 20:17] VITALS: BP 129/57; RESP 18
[2017-03-04] MEDS: ATORVASTATIN 20 MG TAB PO SCH (20:48)
[2017-03-05] MEDS: HYDROCODONE/APAP (5/325) TAB PO PRN ×3 (04:02→19:51)
[2017-03-05] MEDS: PANTOPRAZOLE (EC) 40 MG TAB PO SCH (06:01)
[2017-03-05] MEDS: LEVOTHYROXINE 25 MCG TAB PO SCH (06:01)
[2017-03-05 07:56] VITALS: BP 103/53; RESP 18
[2017-03-05] MEDS ORDERED: METOPROLOL (XL) 25 MG TAB PO SCH (09:00)
[2017-03-05] MEDS: ASPIRIN 325 MG TAB PO SCH ×2 (09:04→20:16)
[2017-03-05] MEDS: DOCUSATE SODIUM 100 MG CAP PO SCH (09:05)
[2017-03-05] MEDS: LEVETIRACETAM 500 MG TAB PO SCH ×2 (09:05→20:17)
[2017-03-05] MEDS: GABAPENTIN 300 MG CAP PO SCH ×3 (09:05→20:16)
--- NOTE | 2017-03-05 09:05 | PN ---
DATE: 03/05/2017 CARDIOLOGY FOLLOWUP SUBJECTIVE: Discussed with the staff. Rhythm strip was reviewed. The patient with no chest pain o r pressure. Still has hip pain but improving slowly. No palpitation. MEDICATIONS: Reviewed. PHYSICAL EXAMINATION: VITAL SIGNS: Temperature 97.8, heart rate of 60, blood pressure 103/53, respiration rate of 18, sat urating 100%. HEENT: Normocephalic, atraumatic. Elderly female in no acute distress. Pupils are equal. CARDIOVASCULAR: Regular rate and rhythm, systolic murmur. PULMONARY: With no wheezes or rhonchi. GASTROINTESTINAL: Soft, nontender. EXTREMITIES: No significant lower extremity edema. NEUROLOGIC: Awake and responds appropriately. PSYCHIATRIC: Appears to be calm and pleasant. LABORATORY: Not done today. ASSESSMENT AND PLAN 1. Hip fracture status post surgery. 2. Hypertension, currently stable and in fact hypotensive. Beta brock has been on hold. 3. Diabetes. 4. History of cerebrovascular accident. 5. Hypothyroidism. RECOMMENDATIONS: I will decrease the Toprol to 12.5 since it has to be held most of the time becaus e of low blood pressure. We will continue with the rest of her cardiac care. Statin will be contin ued. DVT prophylaxis as per internal medicine. Thyroid management to be continued. Awaiting the p ossible transfer to rehabilitation. Dictated By: GABRIEL WILSON MD AV/ELSA Conf#: [id number] DID#: [id number] CC: MOSHE MARTIN MD;*EndCC*
[2017-03-05] MEDS: HEPARIN 5,000 UNIT/0.5 ML VIAL SC SCH ×2 (09:30→20:18)
[2017-03-05] MEDS: POTASSIUM CHLORIDE 10 MEQ in SOD CHLORIDE 0.45% 1,000 ML IV SCH (11:02)
[2017-03-05] MEDS ORDERED: HYDR-3498 PO (12:12)
--- NOTE | 2017-03-05 12:13 | PDOCDIS ---
Discharge Instructions CONDITION Patient Condition: Good HOME CARE INSTRUCTIONS: Diet Instructions: Regular ACTIVITY: Activity Restrictions: Slowly Increase Activity FOLLOW UP/APPOINTMENTS Appointments F/U WITH YOUR PCP IN 1-2 WEEKS, F/U WITH YOUR HOME HEALTH AGENCY MOSHE MARTIN March 05, 2017 12:13
--- NOTE | 2017-03-05 12:43 | DS ---
DATE OF ADMISSION: 02/21/2017 DATE OF DISCHARGE: 03/05/2017 DISCHARGE DIAGNOSES: 1. Closed subcapital fracture of the right femur, status post surgical repair. Discharge to home w [facility] home health. The patient's daughter does not want to take the patient to SNF. 2. Dyslipidemia. Continue Lipitor. 3. Anemia of chronic disease as well as acute blood loss anemia, stable. HOSPITAL COURSE: The patient is an 82-year-old female with a history of hypertension, dyslipidemia, anemia, old CVA, hypothyroidism, and possible seizure. The patient presents with right hip pain st atus post fall. Patient was seen by orthopedics and did undergo a right hip open reduction internal fixation on 03/01/2017. The patient was seen by PT postoperatively. Of note, the patient was also seen by cardiology for clearance in this hospitalization and the patient's daughter did not want to take the patient to a SNF and wanted to take the patient home. The patient was provided with Medic al by the hospice case manager and once the patient obtained her Medical, the patient was ultimately discha rged home with home health. On the day of discharge, patient's vitals, labs, physical exam were sta ble. She had no acute complaints and questions answered. CONDITION ON DISCHARGE: Stable. DISPOSITION: To home. MEDICATIONS: Patient is to continue her usual home medications. Patient was to stop her lisinopril as blood pressure was low, without any medications. The patient was given a new prescription for N orco 5/325 one tab p.o. q. 6 hours p.r.n. for pain. FOLLOWUP: The patient is to follow up with her PCP in 1 to 2 weeks and is to follow up with home he alth agency. Greater than 30 minutes was spent coordinating discharge of the patient. Dictated By: MOSHE MARTIN MD BS/NTS Conf#: [id number] DID#: [id number]
[2017-03-05 19:28] VITALS: BP 141/61; RESP 18
[2017-03-05] MEDS: ATORVASTATIN 20 MG TAB PO SCH (20:16)
== END 2017-03-05 22:05 | disposition home health service (06) | DRG 481 ==
LOC: E/R 15:26 → MS1 18:01
PROVIDERS: ADMIT Internal Medicine; ATTEND Internal Medicine
PROC: 0QS604Z Reposition Right Upper Femur with Internal Fixation Device, Open Approach (ICD-10-PCS; principal; 2017-03-01 07:00)
DX: S72.011A Unspecified intracapsular fracture of right femur, initial encounter for closed fracture (principal); N39.0 Urinary tract infection, site not specified; I27.2 Other secondary pulmonary hypertension; D62 Acute posthemorrhagic anemia; D63.8 Anemia in other chronic diseases classified elsewhere; D50.9 Iron deficiency anemia, unspecified; W01.0XXA Fall on same level from slipping, tripping and stumbling without subsequent striking against object, initial encounter; I10 Essential (primary) hypertension; Z86.73 Personal history of transient ischemic attack (TIA), and cerebral infarction without residual deficits; E03.9 Hypothyroidism, unspecified; D72.829 Elevated white blood cell count, unspecified
CPT/HCPCS: 36415; 71010; 72170; 72192; 73510; 73530; 80048; 80053; 80061; 82728; 83540; 83735; 84100; 84443; 85025; 85610; 85730; 87081; 87086; 93005; 93306; 96361; 96374; 96375; 97110; 97116; 97162; 97530; A4310; C1713; J0690; J0696; J1644; J1885; J2060; J2250; J2270; J2274; J2405; J2765; J2916; J3010; J3480; J7040; J7042

== ENCOUNTER 2017-06-27 11:42 | Emergency (ER) | payer MEDICAID, OTHER ==
[~2017-06-27] VITALS: Ht 152.4 cm; Wt 60.0 kg
[~2017-06-27 11:42] MED LIST changes: -ASPI-664 PO; +ASPI81TA3 PO; +HYDR-3498 PO; +LEVE-5 PO; +LEVO25TA53 PO; -TYL500 PO
[2017-06-27 12:15] VITALS: Ht 152.4 cm; Wt 60.0 kg
[2017-06-27] MEDS ORDERED: SOD CHLORIDE 0.9% 500 ML IV STA (13:02)
[2017-06-27] MEDS ORDERED: ONDANSETRON 4 MG INJ IV STA (13:02)
[2017-06-27] MEDS ORDERED: FAMOTIDINE 20 MG INJ IV STA (13:02)
[2017-06-27] MEDS ORDERED: morphine 2 MG INJ IV STA (13:02)
[2017-06-27 13:23] LABS: BASOPHILS % 0.2 % (0.0-2.0); EOSINOPHILS # 0.1 10^3/ul (0.0-0.5); EOSINOPHILS % 0.4 % (0.0-7.0); HEMATOCRIT 36.2 % (37.0-47.0); HEMOGLOBIN 11.7 g/dl (12.0-16.0); LYMPHOCYTES # 2.7 10^3/ul (0.8-2.9); MEAN CORPUSCULAR HEMOGLOBIN 27.1 pg (29.0-33.0); MEAN CORPUSCULAR HGB CONC 32.3 g/dl (32.0-37.0); MEAN CORPUSCULAR VOLUME 83.8 fl (82.0-101.0); MEAN PLATELET VOLUME 8.8 fl (7.4-10.4); MONOCYTE # 0.6 10^3/ul (0.3-0.9); MONOCYTES % 3.7 % (0.0-11.0); NEUTROPHILS % 79.2 % (39.0-77.0); PLATELET COUNT 235 10^3/UL (140-415); RED BLOOD COUNT 4.32 10^6/ul (4.20-5.40); RED CELL DISTRIBUTION WIDTH 15.2 % (11.5-14.5); WHITE BLOOD COUNT 16.7 10^3/ul (4.8-10.8)
[2017-06-27 13:38] LABS: INR 1.09; PROTIME 14.1 Sec (12.2-14.2); PT RATIO 1.1
[2017-06-27 13:41] LABS: ALANINE AMINOTRANSFERASE 30 IU/L (13-69); ALBUMIN 4.1 g/dl (3.3-4.9); ALBUMIN/GLOBULIN RATIO 0.93; ALKALINE PHOSPHATASE 125 IU/L (42-121); ANION GAP 13 (8-16); ASPARTATE AMINO TRANSFERASE 26 IU/L (15-46); BILIRUBIN,INDIRECT 0.2 mg/dl (0-1.1); BILIRUBIN,TOTAL 0.2 mg/dl (0.2-1.3); BLOOD UREA NITROGEN 20 mg/dl (7-20); CALCIUM 9.3 mg/dl (8.4-10.2); CARBON DIOXIDE 26 mmol/L (21-31); CHLORIDE 107 mmol/L (97-110); CREATININE 0.75 mg/dl (0.44-1.00); GLUCOSE 134 mg/dl (70-220); POTASSIUM 4.1 mmol/L (3.5-5.1); SODIUM 142 mmol/L (135-144); TOTAL PROTEIN 8.5 g/dl (6.1-8.1)
[2017-06-27 13:59] LABS: TROPONIN-I < 0.012 ng/ml (0.00-0.12)
[2017-06-27] MEDS ORDERED: ASPI-664 PO (14:03)
[2017-06-27] MEDS ORDERED: LISI2.5T59 PO (14:03)
[2017-06-27 14:47] LABS: ADD UMIC YES; UR AMORPHOUS CRYSTAL FEW /HPF (NONE SEEN); UR ASCORBIC ACID NEGATIVE (NEGATIVE); UR BACTERIA FEW /HPF (NONE SEEN); UR BILIRUBIN (Dip) NEGATIVE (NEGATIVE); UR BLOOD (Dip) 1+ mg/dL (NEGATIVE); UR CLARITY SLIGHTLY CLOUDY (CLEAR); UR COLOR YELLOW (YELLOW); UR GLUCOSE (Dip) NEGATIVE (NEGATIVE); UR KETONES (Dip) NEGATIVE (NEGATIVE); UR LEUKOCYTE ESTERASE (Dip) NEGATIVE Leu/ul (NEGATIVE); UR NITRITE (Dip) POSITIVE (NEGATIVE); UR RBC 18 /HPF (0-5); UR SPECIFIC GRAVITY (Dip) 1.019 (1.003-1.030); UR TOTAL PROTEIN (Dip) NEGATIVE (NEGATIVE); UR UROBILINOGEN (Dip) NEGATIVE (NEGATIVE)
[2017-06-27] MEDS ORDERED: CEFTRIAXONE 1 GM/50 ML (PMX) 50 ML IVPB ONE (15:00)
--- NOTE | 2017-06-27 15:34 | RADRPT ---
PROCEDURE: CT abdomen and pelvis without contrast. CLINICAL INDICATION: Abdominal pain. TECHNIQUE: CT scan of the abdomen and pelvis without contrast was performed on a multi-slice CT [facility] . Sagittal and coronal reformatted images were obtained from the axial source images. One or more of the following dose reduction techniques were used: - Automated exposure control. - Adjustment of the mA and/or kV according to patient size. - Use of iterative reconstruction technique. DLP 658.4 mGycm. CTDIvol 13.5 mGy COMPARISON: CT pelvis 02/21/2017 FINDINGS: Scarring is seen in the lung bases. There is a trace hiatus hernia. Coronary artery calcifications are seen in the heart. There is limited evaluation of the solid viscera from the lack of IV contra st. The kidneys are symmetric bilaterally with no evidence of renal or ureteral calculi. There is no hy dronephrosis or perinephric stranding. There is uniform density of the liver with no gross focal lesion or biliary ductal dilatation. The gallbladder has layering calculi without surrounding inflammation. The spleen is unremarkable without mass. The adrenal glands are within normal limits without mass. The pancreas is unremarkable without focal lesion or surrounding inflammatory changes. There is no bowel obstruction or focal bowel inflammation. The appendix is unremarkable. There is a moderately diffusely fecal filled colon. There is no free air or free fluid. There are no enlarged lymph nodes. There is aortic atherosclerosis without aneurysmal dilatation. Degenerative changes are seen in t he lumbar spine with no acute osseous abnormality. Osteopenia is present. There are surgical change s of the right hip ORIF. The uterus and adnexal structures are grossly unremarkable. IMPRESSION: No evidence of renal or ureteral calculi or hydronephrosis. No evidence of bowel obstruction or inflammation. There is a fecal filled colon. Cholelithiasis without cholecystitis. Atherosclerotic disease is present. RPTAT: AA .Cortney Baker MD, MD Date Time Electronically viewed and signed by .Cortney Baker MD, MD on 06/27/2017 15:33 .Kayode/
--- NOTE | 2017-06-27 15:45 | ERD ---
ER Documentation Chief Complaint Date/Time DATE: 06/27/17 TIME: 15:37 Chief Complaint BACK PAIN SINCE YESTERDAY NO FALL OR TRAUMA HPI History is obtained from this patient's daughter as the patient is unable to give a detailed history secondary to language barrier. This is an 82-year-old female who presents to the emergency room for evaluation of backpain. According to this patient's daughter this patient has had left-sided back pain for a 1 days duration. She states that her mother "felt hot" however she did not check a temperature. She states that her mother has been feeling more weak since yesterday. No nausea or vomiting. The patient says that movement of her back exacerbates her pain and she has mild radiation of the pain to the left groin. The pain is described as an achy pain. ROS All systems reviewed and are negative except as per history of present illness. Medications Home Meds Active Scripts Baclofen* (Baclofen*) 10 Mg Tablet, 10 MG PO Q8 Y for MUSCLE SPASMS, #60 TAB Prov:MOSHE MARTIN 11/15/15 Atorvastatin Calcium* (Atorvastatin Calcium*) 20 Mg Tablet, 20 MG PO QHS for 60 Days, TAB Prov:MOSHE MARTIN 11/15/15 Reported Medications Aspirin (Low Dose Aspirin) 81 Mg Tablet.dr, 81 MG PO DAILY, #30 TAB 06/27/17 Lisinopril* (Lisinopril*) 2.5 Mg Tablet, 2.5 MG PO DAILY, #30 TAB 06/27/17 Levetiracetam* (Keppra*) 500 Mg Tablet, 500 MG PO BID, TAB 02/21/17 Aspirin* (Aspirin* Chew) 81 Mg Tab.chew, 81 MG PO DAILY, TAB.CHEW 02/21/17 Discontinued Reported Medications Levothyroxine Sodium* (Levothyroxine Sodium*) 25 Mcg Tablet, 25 MCG PO BEFORE BREAKFAST, #30 TAB 02/21/17 Discontinued Scripts Hydrocodone Bit-Acetaminophen (Hydrocodone Bit-APAP) 5-325MG Tablet, 1 TAB PO Q6H Y for PAIN, #40 TAB Prov:MOSHE MARTIN 03/05/17 Gabapentin* (Gabapentin*) 300 Mg Capsule, 300 MG PO TID for 30 Days, CAP Prov:ABAD PERSAUD MD 11/07/15 Allergies Allergies: Coded Allergies: No Known Allergy (Unverified , 06/27/17) PMhx/Soc History of Surgery: No Anesthesia Reaction: No Hx Neurological Disorder: Yes (CVA 5yrs ago, seizures) Hx Respiratory Disorders: No Hx Cardiac Disorders: Yes (HTN, Hyperlipidemia) Hx Psychiatric Problems: No Hx Miscellaneous Medical Probl: Yes (HTN, anemia, R hemiparesis, hypothyroidism , possible seizures) Hx Alcohol Use: No Hx Substance Use: No Hx Tobacco Use: No Smoking Status: Never smoker Physical Exam Vitals Vital Signs Date Time Temp Pulse Resp B/P Pulse Ox O2 Delivery O2 Flow Rate FiO2 06/27/17 15:27 80 26 101/53 94 Room Air 06/27/17 12:15 98.5 94 16 129/72 100 Physical Exam INITIAL VITAL SIGNS: Reviewed by me GENERAL: The patient is well developed and appropriate for usual state of health in no apparent distress HEENT: Pupils equal, round, and reactive to light. EOMI. There is no scleral icterus. NECK: C-spine is soft and supple, there is no meningismus. There is no cervical lymphadenopathy. LUNGS: Clear to auscultation bilaterally. There are no rales, wheezes or rhonchi. HEART: Regular rate and rhythm, no murmurs, clicks, rubs or gallops. ABDOMEN: Left-sided CVAT, otherwise soft, non-tender, non-distended. There are bowel sounds in all four quadrants. No rebound or guarding. EXTREMITIES: There is no peripheral cyanosis or edema. No focal swelling or erythema. NEUROLOGICAL: The patient moves all four extremities with 5/5 strength. Cranial nerves II - XII are intact. Normal gait. Alert and oriented SKIN: There is no apparent rash or petechiae. HEME/LYMPHATIC: There is no evidence of excessive bruising or lymphedema. PSYCHIATRIC: The patient does not appear anxious or depressed. Result Diagram: 06/27/17 1313 06/27/17 1313 Results 24 hrs Laboratory Tests Test 06/27/17 13:13 06/27/17 13:40 White Blood Count 16.710^3/ul Red Blood Count 4.3210^6/ul Hemoglobin 11.7g/dl Hematocrit 36.2% Mean Corpuscular Volume 83.8fl Mean Corpuscular Hemoglobin 27.1pg Mean Corpuscular Hemoglobin Concent 32.3g/dl Red Cell Distribution Width 15.2% Platelet Count 84924^3/UL Mean Platelet Volume 8.8fl Neutrophils % 79.2% Lymphocytes % 16.0% Monocytes % 3.7% Eosinophils % 0.4% Basophils % 0.2% Nucleated Red Blood Cells % 0.0/100WBC Neutrophils # (Manual) 13.210^3/ul Lymphocytes # 2.710^3/ul Monocytes # 0.610^3/ul Eosinophils # 0.110^3/ul Basophils # 0.010^3/ul Nucleated Red Blood Cells # 0.010^3/ul Prothrombin Time 14.1Sec Prothrombin Time Ratio 1.1 INR International Normalized Ratio 1.09 Activated Partial Thromboplast Time 28.0Sec Sodium Level 142mmol/L Potassium Level 4.1mmol/L Chloride Level 107mmol/L Carbon Dioxide Level 26mmol/L Anion Gap 13 Blood Urea Nitrogen 20mg/dl Creatinine 0.75mg/dl Glucose Level 134mg/dl Calcium Level 9.3mg/dl Total Bilirubin 0.2mg/dl Direct Bilirubin 0.00mg/dl Indirect Bilirubin 0.2mg/dl Aspartate Amino Transf (AST/SGOT) 26IU/L Alanine Aminotransferase (ALT/SGPT) 30IU/L Alkaline Phosphatase 125IU/L Troponin I < 0.012ng/ml Total Protein 8.5g/dl Albumin 4.1g/dl Globulin 4.40g/dl Albumin/Globulin Ratio 0.93 Lipase 88U/L Urine Color YELLOW Urine Clarity SLIGHTLY CLOUDY Urine pH 6.0 Urine Specific [place] 1.019 Urine Ketones NEGATIVEmg/dL Urine Nitrite POSITIVEmg/dL Urine Bilirubin NEGATIVEmg/dL Urine Urobilinogen NEGATIVEmg/dL Urine Leukocyte Esterase NEGATIVELeu/ul Urine Microscopic RBC 18/HPF Urine Microscopic WBC 15/HPF Urine Amorphous Crystals FEW/HPF Urine Bacteria FEW/HPF Urine Hemoglobin 1+mg/dL Urine Glucose NEGATIVEmg/dL Urine Total Protein NEGATIVEmg/dl Current Medications Medications (Trade) Dose Ordered Sig/Flor Route PRN Reason Start Time Stop Time Status Last Admin Dose Admin Sodium Chloride (NS) 500 ml @ 500 mls/hr Q1H STAT IV 06/27/17 13:02 06/27/17 14:01 DC 06/27/17 13:19 Morphine Sulfate (morphine) 2 mg ONCE STAT IV 06/27/17 13:02 06/27/17 13:03 DC 06/27/17 13:21 Ondansetron HCl (Zofran Inj) 4 mg ONCE STAT IV 06/27/17 13:02 06/27/17 13:03 DC 06/27/17 13:19 Famotidine 20 mg 20 mg ONCE STAT IV 06/27/17 13:02 06/27/17 13:03 DC 06/27/17 13:19 Ceftriaxone Sodium (Rocephin) 50 ml @ 100 mls/hr ONCE ONCE IVPB 06/27/17 15:00 06/27/17 15:29 DC 06/27/17 15:27 Procedures/MDM CT abdomen pelvis without: No acute process This 82-year-old female presents to the emergency room for evaluation of back pain. On my examination this patient was afebrile and nontoxic-appearing however she did have left-sided CVAT. The patient did describe back pain with mild radiation towards the groin area.This patient did have lab work drawn and urinalysis was obtained. This patient does have a nitrite positive urinary tract infection. Urine culture was obtained. CT was also obtained to rule out any intra-abdominal pathology. CT the abdomen pelvis does not reveal any intra- abdominal pathology at this time. The patient does have a leukocytosis and her history and physical exam is consistent with pyelonephritis. The patient was given 1 g Rocephin in the emergency room, she is not hypotensive at this time. The patient is tolerating p.o. and I advised the patient and the patient's family that if this patient is unable to tolerate her oral antibiotics or she has increased pain she needs to return to the emergency room for admission. Both patient and the patient's family member okay with her plan of care. Departure Diagnosis: Primary Impression: Acute pyelonephritis Additional Impression: Acute cystitis Condition: Stable WAYNEBonifacioLEYDI ABDUL Jun 27, 2017 15:45
[2017-06-27] MEDS ORDERED: CIPR500T4 PO (15:46)
[2017-06-27 15:53] VITALS: BP 111/71; PULSE 74; RESP 17
== END 2017-06-27 16:00 | disposition home or self-care (01) ==
LOC: E/R 11:42
DX: N10 Acute pyelonephritis (principal); N30.00 Acute cystitis without hematuria; I10 Essential (primary) hypertension; E03.9 Hypothyroidism, unspecified; R10.9 Unspecified abdominal pain; Z79.82 Long term (current) use of aspirin
CPT/HCPCS: 36415; 74176; 80053; 81001; 83690; 84484; 85025; 85610; 85730; 87086; 93005; 96374; 96375; J0696; J2270; J2405; J7040; Z7502; Z7610

== ENCOUNTER 2018-09-14 09:56 | Inpatient (IN) | END 2018-09-17 13:40 | disposition home or self-care (01) | DRG 872 ==

== ENCOUNTER 2019-02-22 22:44 | Emergency (ER) | payer OTHER ==
[~2019-02-22] VITALS: Wt 50.0 kg
[~2019-02-22 22:44] MED LIST changes: +ASPI-817 PO; -ASPI81TA3 PO; -ATOR20TA38 PO; -BACL10TA PO; +CIPR500T4 PO; +FER325 PO; -GABA300C16 PO; -HYDR-3498 PO; -LEVO25TA53 PO; +LISI2.5T59 PO; +METR500T PO
--- NOTE | 2019-02-23 02:41 | ERD ---
ER Documentation Chief Complaint Chief Complaint DYSURIA/ HEMATURIA X'S 4 DAYS HPI 84-year-old female prior history of stroke with right-sided deficits who presents to the emergency room complaining of 1 to 2 days of symptoms that include dysuria urgency and frequency. The patient does describe some chronic body pain that is unchanged. No significant fever at home. No nausea vomiting diarrhea. No significant abdominal pain. Patient does describe some small amount of blood in the urine as well. No flank pain. No colicky pain. ROS All systems reviewed and are negative except as per history of present illness. Medications Home Meds Active Scripts Cephalexin* (Keflex*) 500 Mg Capsule, 500 MG PO BID for 7 Days, CAP Prov:ABAD PERSAUD MD 02/23/19 Ferrous Sulfate* (Ferrous Sulfate*) 325 Mg Tabec, 325 MG PO DAILY, #30 TAB Prov:RAFA HIGUERA V[employer] RECEIVING [employer]OCIATE 09/17/18 Metronidazole* (Flagyl*) 500 Mg Tablet, 500 MG PO Q8 for 4 Days, #12 TAB Prov:RAFA HIGUERA V. RECEIVING ASSOCIATE 09/17/18 Ciprofloxacin Hcl* (Ciprofloxacin Hcl*) 500 Mg Tablet, 500 MG PO BID@06,18 for 4 Days, #8 TAB Prov:HIGUERARAFA HOWARD V. RECEIVING ASSOCIATE 09/17/18 Reported Medications Aspirin* (Aspirin* EC) 81 Mg Tablet.dr, 81 MG PO DAILY, TAB 09/14/18 Lisinopril* (Lisinopril*) 2.5 Mg Tablet, 2.5 MG PO DAILY, #30 TAB 06/27/17 Levetiracetam* (Keppra*) 500 Mg Tablet, 500 MG PO BID, TAB 02/21/17 Allergies Allergies: Coded Allergies: No Known Allergy (Unverified , 09/14/18) PMhx/Soc History of Surgery: Yes (back surgery) Anesthesia Reaction: No Hx Neurological Disorder: No Hx Respiratory Disorders: No Hx Cardiac Disorders: No (htn,hyperlipedemia) Hx Psychiatric Problems: No Hx Miscellaneous Medical Probl: No Hx Alcohol Use: No Hx Substance Use: No Hx Tobacco Use: No FmHx Family History: No diabetes Physical Exam Vitals Vital Signs Date Temp Pulse Resp B/P (MAP) Pulse Ox O2 O2 Flow FiO2 Time Delivery Rate 02/22/19 98.4 82 18 147/72 95 22:48 (97) Physical Exam General: Well developed, well nourished, no acute distress Head: Normocephalic, atraumatic. Eyes: Pupils equally reactive, EOM intact ENT: Moist mucous membranes Neck: Supple, no lymphadenopathy Respiratory: Lungs clear bilaterally, no distress Cardiovascular: RRR, no murmurs, rubs, or gallops Abdominal: Soft, non-tender, non-distended, no peritoneal signs, no tenderness to McBurney's point Back: No CVAT bilaterally : Deferred MSK: No edema, no unilateral swelling, some residual right-sided deficits from prior stroke Neurologic: Alert and oriented, moving all extremities, normal speech, no focal weakness, no cerebellar signs Skin: No rash Psych: Normal mood Results 24 hrs Laboratory Tests Test 02/23/19 02:59 Bedside Urine pH (LAB) 7.0 Bedside Urine Protein (LAB) 1+ Bedside Urine Glucose (UA) Negative Bedside Urine Ketones (LAB) Negative Bedside Urine Blood 2+ Bedside Urine Nitrite (LAB) Positive Bedside Urine Leukocyte Esterase (L 2+ Current Medications Medications Dose Sig/Flor Start Time Status Last (Trade) Ordered Route PRN Stop Time Admin Dose Reason Admin Ceftriaxone 1 gm ONCE ONCE 02/23/19 DC Sodium IM 03:00 02/23/19 (Rocephin) 03:01 Procedures/MDM LAB INTERPRETATION: I reviewed the laboratory testing and it shows urinary tract infection MEDICAL DECISION MAKING: Patient is afebrile with normal vital signs. Her clinical exam is possibly consistent with acute cystitis without signs or symptoms concerning for systemic illness. The patient does not have Sirs criteria in the emergency room setting. She is otherwise tolerating oral intake and well-hydrated. Her pain is consistent with baseline. Her neurologic deficit is also consistent with b aseline. Patient has no flank pain to suggest renal colic or pyelonephritis. Understanding the patient is 84 years old, the patient is extremely well- appearing, tolerating oral intake with normal vital signs in the emergency room setting. I do not believe a significant work-up including laboratory testing, blood cultures or diagnostic imaging is necessary. The patient has a clear presentation of likely uncomplicated cystitis without systemic infection. For this reason laboratory testing and diagnostic imaging was not initiated, other than urinalysis and urine culture The patient is able to tolerate oral intake and is stable vital signs if this is a simple urinary tract infection a dose ceftriaxone and outpatient oral antibiotics would be more than appropriate. Return precautions were discussed and understood. The family feels comfortable with this plan. ER COURSE: * Urinalysis consistent with urinary tract infection. Urine culture sent. * 1 g IM ceftriaxone provided. The patient can be safely discharged with Keflex. Return precautions were discussed and understood. CONSULTATION: None DISPOSITION PLAN: The patient does not have an identifiable emergent medical condition that warrants inpatient hospitalization at this time. The patient is deemed safe for discharge with outpatient follow-up. We discussed follow up with the patient's primary care doctor within 24 to 48 hours as needed. We also discussed return to the emergency room for worsening symptoms or worsening condition. Outpatient referral: None required Discharge Medications: Keflex Departure Diagnosis: Primary Impression: Urinary tract infection Urinary tract infection type: acute cystitis Hematuria presence: without hematuria Qualified Codes: N30.00 - Acute cystitis without hematuria Condition: Stable ABAD PERSAUD MD February 23, 2019 02:41
[2019-02-23] MEDS ORDERED: CEFTRIAXONE 1 GM INJ IM ONE (03:00)
[2019-02-23] MEDS ORDERED: CEPH-443 PO (03:00)
[2019-02-23 03:19] VITALS: BP 117/62; PULSE 94; RESP 23
== END 2019-02-23 03:30 | disposition home or self-care (01) ==
LOC: E/R 22:44
DX: N30.00 Acute cystitis without hematuria (principal); I10 Essential (primary) hypertension; Z79.82 Long term (current) use of aspirin
CPT/HCPCS: 81003; 87086; 96372; J0696; Z7502